=== PATIENT | male | born 1975 | race Caucasian/White ===

== ENCOUNTER 2016-05-06 23:44 | Inpatient (IN) | payer MEDICARE, BC ==
[2016-05-07 04:22] LABS: Anisocytosis Moderate; CH 33.4; CHCM 32.1; HCT 24.7 % (39.0-53.0); HDW 3.49; HGB 7.7 gm/dL (13.0-17.5); Hypochromasia Slight; MCH 33.1 pg (25.0-35.0); MCHC 31.3 g/dL (31.0-37.0); MCV 105.6 fL (80.0-100.0); Macrocytosis Marked; Mean Platelet Volume 6.6; Poikilocytosis Slight; RBC 2.34 m/uL (4.30-5.90); RDW 21.5 % (11.5-15.5); WBC 4.7 k/uL (3.8-10.6); WBC (Perox) 4.99
[2016-05-07 06:42] LABS: Add Differential Manual Differential
[2016-05-07 06:49] LABS: Myelocytes % 0.5 %; Nucleated Red Blood Cells 0 /100 WBC (0-0); Total Cells Counted 200
[2016-05-07 06:50] LABS: Crenated RBC Present
[2016-05-07] MEDS ORDERED: NALOXONE 0.4 MG/ML 1 ML VIAL IV PRN (11:34)
[2016-05-07] MEDS ORDERED: LORazepam 0.5 MG TAB PO PRN (11:34)
[2016-05-07] MEDS ORDERED: MEROPENEM 1 GM VIAL IVPB SCH (11:45)
--- NOTE | 2016-05-07 12:00 | XR ---
EXAMINATION TYPE: XR chest 1V DATE OF EXAM: 05/07/2016 11:47 AM COMPARISON: NONE INDICATION: Cirrhosis TECHNIQUE: Single frontal view of the chest is obtained. FINDINGS: The heart size is normal. The pulmonary vasculature is normal. The lungs are clear. IMPRESSION: 1. No acute pulmonary process.
[2016-05-07] MEDS: SODIUM CHLORIDE 0.9% 1,000 ML IV SCH (12:43)
[2016-05-07 12:49] LABS: Anisocytosis Moderate; Basophils % (A) 0 %; CH 33.4; CHCM 32.3; Eosinophils % (A) 0 %; HCT 24.3 % (39.0-53.0); HDW 3.47; HGB 7.8 gm/dL (13.0-17.5); Hypochromasia Slight; Luc # (Auto) 0.04; Luc % (Auto) 1; Lymphocytes # (A) 0.3 k/uL (1.0-4.8); Lymphocytes % (A) 6 %; MCH 33.6 pg (25.0-35.0); MCHC 32.1 g/dL (31.0-37.0); MCV 104.7 fL (80.0-100.0); Macrocytosis Marked; Mean Platelet Volume 6.6; Monocytes # (A) 0.1 k/uL (0-1.0); Monocytes % (A) 2 %; Neutrophils # (A) 4.2 k/uL (1.3-7.7); Neutrophils % (A) 91 %; Poikilocytosis Slight; RBC 2.32 m/uL (4.30-5.90); WBC 4.6 k/uL (3.8-10.6); WBC (Perox) 4.82
[2016-05-07 12:55] LABS: INR 1.6 (<1.1); Prothrombin Time 15.3 sec (9.0-12.0)
[2016-05-07 12:58] LABS: Magnesium 1.6 mg/dL (1.6-2.3); Phosphorous 6.2 mg/dL (2.5-4.5); Potassium 4.7 mmol/L (3.5-5.1); Total Protein 4.7 g/dL (6.3-8.2)
[2016-05-07 13:08] LABS: Manual Review Performed
[2016-05-07 13:15] LABS: Crenated RBC Present
[2016-05-07] MEDS: RIFAXIMIN 550 MG TABLET PO SCH (14:17)
[2016-05-07] MEDS: PANTOPRAZOLE 40 MG/10 ML VIAL IV SCH (14:17)
[2016-05-07] MEDS: MESALAMINE 400 MG CAPSULE.DR PO SCH (15:50)
[2016-05-07] MEDS: FUROSEMIDE 80 MG TAB PO SCH (15:50)
[2016-05-07] MEDS: MIDODRINE 5 MG TAB PO SCH (15:50)
[2016-05-07] MEDS: MEROPENEM 2 GM in SODIUM CHLORIDE 0.9% 100 ML IVPB SCH (15:51)
[2016-05-07] MEDS: SODIUM BICARBONATE TAB 650 MG TAB PO SCH (15:51)
--- NOTE | 2016-05-07 17:25 | CONS ---
DATE OF CONSULTATION: 05/07/2016 REASON FOR CONSULTATION: Ascites. 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 In fact, he was just discharged from [facility] on the day before Eleanor at which time he was admitted to the hospital with abdominal pain, ascites and he underwent large volume paracentesis on 04/28 and approximately 2 liters of fluid was removed. During his last hospitalization the patient was diagnosed to have some scrotal abscess related to his Crohn's disease for which he underwent incision and drainage and subsequently during the hospitalization because of persistent leukocytosis and some headaches, he had CT of the head done, which showed multiple small abscesses in the brain and was evaluated by ID. He was started on IV antibiotics with Merrem. In fact he was discharged home on home antibiotics, which the mother has been giving him. He was not feeling well. He is complaining of some abdominal discomfort and he wants to have another large volume paracentesis; hence, he went to the emergency room at [facility] and subsequently transferred here for further management. The patient denies any abdominal pain. He reports no nausea or vomiting. He does complain of some shortness of breath and he believes this is because of ongoing ascites. He has long-standing history of Crohn's disease with severe rectal strictures and attempted colonoscopy in the last 3 months at [facility] was not successful. Patient was scheduled to have a barium enema, but because of multiple hospitalizations this was not done. He states that yesterday he had 2 episodes of bright red blood per rectum and usually he has about 5 to 6 bowel movements daily. His past medical history is significant for: 1. Cirrhosis of the liver. 2. Primary sclerosing cholangitis. 3. Crohn's colitis with rectal and anal strictures. 4. Chronic renal failure. 5. Pancytopenia. PAST SURGICAL HISTORY: 1. Recurrent paracentesis. 2. I&D of scrotal abscess. Medications at home include: 1. Actigall. 2. Sodium bicarb. 3. Xifaxan. 4. Potassium chloride. 5. Melatonin. 6. Lialda. 7. Merrem. 8. Magnesium oxide. 9. Lasix. 10. Folic acid. 11. Feosol. 12. Vitamin C. ALLERGIES: None. SOCIAL HISTORY: No smoking. No alcohol use. FAMILY HISTORY: Unremarkable. REVIEW OF SYSTEMS: CARDIOPULMONARY: He denies any chest pain or shortness of breath. GENITOURINARY: No dysuria or hematuria. MUSCULOSKELETAL: Unremarkable. SKIN: Unremarkable. ENDOCRINE: Unremarkable. PSYCHIATRIC: Unremarkable. NEUROLOGY: Unremarkable. ENT/VISION: Unremarkable. CONSTITUTIONAL: Extremely weak and tired. On physical examination, he appears comfortable in no apparent distress. Vital signs are stable. Blood pressure is 112/65, pulse is 76, temperature 96.9. HEENT EXAMINATION: Unremarkable. Conjunctivae pink. Sclerae anicteric. Oral cavity, no lesions. NECK: No JVD or lymph node enlargement. Chest was clear to auscultation. HEART: Regular rate and rhythm. ABDOMEN: Soft. It was slightly distended. There was some free fluid noted in the abdomen. EXTREMITIES: 1+ pedal edema. SKIN: No rashes. NEURO: He is alert and oriented x3. No focal deficits. Labs from today, WBC 4.6, hemoglobin 7.8, platelets are 81,000. The rest of the labs are still pending at the time of this dictation. IMPRESSION: 1. Recurrent ascites, last paracentesis was done a week ago at [facility]. 2. Cirrhosis of the liver secondary to primary sclerosing cholangitis. The patient is presently on liver transplant list at [facility]. 3. Long-standing history of Crohn's colitis with anal and rectal strictures; now has some rectal bleeding probably related to active colitis. 4. Pancytopenia related to hypersplenism from portal hypertension. 5. Recent scrotal abscess for which he was admitted to [facility] status post incision and drainage a week ago and CT of the head showed multiple small brain abscesses for which he is on Merrem on an outpatient basis. RECOMMENDATIONS: 1. Continue all home medications. 2. I will schedule him for a large volume paracentesis on Sunday and hopefully we can discharge the patient home on Sunday so that he can follow up with his outpatient visit at [facility] on Sunday. In the meantime will await the rest of the labs and will follow the patient closely during his hospital stay.
--- NOTE | 2016-05-07 18:41 | HP ---
DATE OF ADMISSION: CHIEF COMPLAINT: Abdominal distention. HISTORY OF PRESENT ILLNESS: This 40-year-old gentleman with a past medical history of multiple medical problems and long-standing Crohn's disease, history of primary sclerosing cholangitis and liver disease secondary to Crohn's disease, history of kidney injury being followed by Lalito Palencia in [facility] also was seen by [facility]. The patient had hepatic cirrhosis. The patient is on liver transplant list since 02/19. The patient has iron deficient anemia and pancytopenia. The patient also has ascites which started in February at [facility] about 1.5 liters of fluid was aspirated. Patient also has esophageal varices and portal gastropathy and rectal stricture also. 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 The patient was treated with vancomycin, ertapenem and clindamycin and subsequently patient had a fall and subsequently patient found to have multiple brain abscesses. Patient had PICC line placed and was started on meropenem per recommendations from [facility]. The patient also had acute kidney injury during the hospitalization. Neurosurgery was consulted and meropenem, a total of 8 weeks course of meropenem was suggested. A LUCHO was negative for any vegetation at this time. The patient was discharged on April 28. The patient went home and the pat went to [facility] with complaints of shortness of breath and abdominal distention. Patient was transferred to [facility] as direct admission at this time. There is no history of fever, rigors. No history of headache, loss of consciousness, seizures. PAST MEDICAL HISTORY: History of Crohn's disease, extensive Crohn's disease associated liver disease and history of pancytopenia, rectal abscess, history of recent brain abscess and scrotal abscess. Medications prior to admission include: 1. Zinc sulfate 220 mcg p.o. daily. 2. Vitamin E 10,000 daily. 3. Actigall 300 mg b.i.d. 4. Sodium bicarbonate 650 mg p.o. t.i.d. 5. Xifaxan 550 mg p.o. b.i.d. 6. Klor-Con 40 mg p.o. daily. 7. Midodrine 10 mg p.o. b.i.d. 8. Lialda 2.4 grams p.o. daily. 9. Merrem 2 grams IV q.8. 10. Magnesium oxide 50 mg. 11. Lasix 80 mg p.o. daily. 12. Folic acid 1 mg a day. 13. Iron sulfate 320 mg b.i.d. 14. Vitamin C 250 mg daily. ALLERGIES: None. FAMILY HISTORY: History of hypertension, history of hyperlipidemia, history of renal disease and Crohn's in the family. SOCIAL HISTORY: No history of smoking, no history of alcohol intake. REVIEW OF SYSTEMS: ENT: No diminished hearing or vision. CARDIOVASCULAR: No angina. RESPIRATORY: No cough. GI: As mentioned earlier. : As mentioned earlier. NERVOUS SYSTEM: As mentioned earlier. ALLERGY/IMMUNOLOGY: No asthma or hayfever. MUSCULOSKELETAL: As mentioned earlier. HEMATOLOGY: No history of anemia. ENDOCRINE: No history of diabetes or hypothyroidism. CONSTITUTIONAL: As mentioned earlier. DERMATOLOGY: Negative. RHEUMATOLOGY: Negative. PSYCHIATRY: As mentioned earlier. PHYSICAL EXAMINATION: Alert and oriented x3. Pulse 83, blood pressure 106/59, respiration 18, temperature 96.9. Pulse ox 100% on room air. HEENT: Conjunctivae deeply icteric. Oral mucosa icteric. NECK: No jugular venous distention. No carotid bruit. No lymph node enlargement. CARDIOVASCULAR: S1 and S2, muffled. No S3, no S4. RESPIRATORY: Breath sounds diminished at the bases. A few scattered rhonchi, no crackles. ABDOMEN: Soft, obese. Ascites present. No hepatosplenomegaly. No guarding, no rigidity. No tenderness. Bowel sounds are diminished. Flanks are dull on percussion. LEGS: Bilateral leg edema and pulses felt normally. NERVOUS SYSTEM: Higher function as mentioned earlier. Moves all four limbs. No focal motor deficits. LYMPHATIC: No lymphadenopathy in the neck, axillae or groin. SKIN: No ulcer, rash or bleeding. LABS: WBC 4.7, hemoglobin 11.8, MCV 104.7. Other labs are sodium 130, potassium 4.7 and creatinine is 1.76, phosphorus 6.2. Alk phos 133, total protein is 4.7. Albumin is 1.7. Lipase 351. ASSESSMENT: 1. Abdominal distention and ascites causing shortness of breath. 2. History of recent brain abscess on IV meropenem through PICC line as an outpatient. 3. Cirrhosis of liver secondary to primary sclerosing cholangitis secondary to Crohn's disease. 4. History of Crohn's disease. 5. Anemia, macrocytic, possibly nutritional. 6. Thrombocytopenia secondary liver disease. 7. Coagulopathy secondary to chronic liver disease with INR 1.6. 8. Decreased CO2. 9. Increased creatinine with possible acute on chronic kidney disease, multifactorial. 10. Hypocalcemia. 11. Hyperbilirubinemia. 12. Hypoalbuminemia with mild to moderate protein calorie malnutrition. 13. Increased lipase. 14. History of iron deficiency anemia and pancytopenia. 15. History of ascites. 16. Acute on chronic kidney disease. 17. History of esophageal varices and portal gastropathy. 18. History of rectal stricture. 19. History of metabolic acidosis. 20. 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 21. FULL CODE. RECOMMENDATIONS AND DISCUSSION: In this 40-year-old gentleman who presented with multiple complex medical issues, we will monitor the patient closely. Continue the current medications and symptomatic treatment. Resume the home medications. Repeat labs. Continue the IV antibiotics. Gastroenterology consultation has been sought. We will recommend abdominal paracentesis and continue with monitoring. Otherwise, prognosis guarded because of multiple complex medical issues. Further recommendations to follow. Copy of dictation forwarded to Dr. Lalito Palencia who is the primary physician. Also I have also recommended patient to follow-up with [facility] closely on discharge. Will check serum ammonia. Mental status appears to be stable at this time. Continue to monitor. Further recommendations to follow. MTDD
[2016-05-07 18:42] LABS: Appearance,Urine Clear (Clear); Bilirubin,Urine 2+ (Negative); Glucose,Urine (UA) Negative (Negative); Ketones,Urine 1+ (Negative); Leukocyte Esterase,Urine Negative (Negative); Nitrite,Urine Negative (Negative); PH, Urine 5.5 (5.0-8.0); Protein,Urine Trace (Negative); Specific Gravity,Urine 1.016 (1.001-1.035); UA Billing (MACRO vs. MICRO) CHEM
[2016-05-07] MEDS ORDERED: LORazepam 2 MG/ML SYRINGE ONE (19:45)
[2016-05-07] MEDS ORDERED: LORazepam 2 MG/ML SYRINGE IV STA (19:47)
[2016-05-07] MEDS ORDERED: levETIRAcetam IV 1,000 MG in SALINE 1 100ML.BAG IVPB STA (19:48)
[2016-05-07] MEDS ORDERED: LORazepam 2 MG/ML SYRINGE IV PRN ×2 (19:57→20:04)
[2016-05-07 20:00] LABS: Glucose,Whole Blood 135 mg/dL (75-99)
[2016-05-07] MEDS ORDERED: MELATONIN 3 MG TABLET PO PRN (21:00)
--- NOTE | 2016-05-07 21:06 | CT ---
EXAMINATION TYPE: CT brain wo con DATE OF EXAM: 05/07/2016 8:54 PM COMPARISON: NONE HISTORY: Seizures. CT DLP: 1120.00 mGycm Automated exposure control for dose reduction was used. FINDINGS: There is some gyriform 3 x 1 cm area of hypodensity in the left parietal lobe. There is no mass effec t. There is no midline shift. There is a 1 cm area of hypodensity in the white matter right frontal l obe. There is no evidence of intracranial hemorrhage. The calvarium is intact. The right frontal lobe lesion and left parietal lesion appear to have tiny central area of increased density. These could b e small tumors with surrounding edema. There is a third small potential focus in the right parietal l obe convexity that measures 6 mm. IMPRESSION: Multiple lesions in the brain are seen with some edema. The largest is in the left parietal lobe. Thi s could be metastatic disease. Contrast CT scan or MR scan is recommended for further evaluation.
[2016-05-07 23:48] LABS: Anisocytosis Moderate; Basophils % (A) 0 %; CH 33.5; CHCM 32.4; Eosinophils % (A) 0 %; HCT 24.7 % (39.0-53.0); HDW 3.27; HGB 7.8 gm/dL (13.0-17.5); Luc # (Auto) 0.07; Luc % (Auto) 1; Lymphocytes # (A) 0.4 k/uL (1.0-4.8); Lymphocytes % (A) 4 %; MCH 33.2 pg (25.0-35.0); MCHC 31.7 g/dL (31.0-37.0); MCV 104.7 fL (80.0-100.0); Macrocytosis Marked; Mean Platelet Volume 6.7; Monocytes # (A) 0.4 k/uL (0-1.0); Monocytes % (A) 5 %; Neutrophils # (A) 7.5 k/uL (1.3-7.7); Neutrophils % (A) 90 %; RBC 2.35 m/uL (4.30-5.90); RDW 20.6 % (11.5-15.5); WBC 8.3 k/uL (3.8-10.6); WBC (Perox) 8.07
[2016-05-08] MEDS: MEROPENEM 2 GM in SODIUM CHLORIDE 0.9% 100 ML IVPB SCH ×4 (00:04→23:24)
[2016-05-08] MEDS: FERROUS SULFATE 325 MG TAB PO SCH ×3 (00:04→21:13)
[2016-05-08] MEDS: MESALAMINE 400 MG CAPSULE.DR PO SCH ×4 (00:05→21:13)
[2016-05-08] MEDS: RIFAXIMIN 550 MG TABLET PO SCH ×3 (00:05→19:45)
[2016-05-08] MEDS: MIDODRINE 5 MG TAB PO SCH ×4 (00:06→21:13)
[2016-05-08] MEDS: SODIUM BICARBONATE TAB 650 MG TAB PO SCH ×4 (00:06→21:14)
[2016-05-08] MEDS: SODIUM CHLORIDE 0.9% 1,000 ML IV SCH ×2 (06:02→11:47)
[2016-05-08 07:44] LABS: Calcium 7.8 mg/dL (8.4-10.2); Total Bilirubin 6.9 mg/dL (0.2-1.3); Total Protein 4.1 g/dL (6.3-8.2)
[2016-05-08 07:51] LABS: Anisocytosis Moderate; Basophils % (A) 0 %; CH 33.5; CHCM 32.5; Eosinophils % (A) 0 %; HCT 23.1 % (39.0-53.0); HDW 3.29; HGB 7.4 gm/dL (13.0-17.5); Luc # (Auto) 0.05; Luc % (Auto) 1; Lymphocytes # (A) 0.4 k/uL (1.0-4.8); Lymphocytes % (A) 6 %; MCH 33.3 pg (25.0-35.0); MCHC 31.9 g/dL (31.0-37.0); MCV 104.4 fL (80.0-100.0); Macrocytosis Marked; Mean Platelet Volume 6.5; Monocytes # (A) 0.3 k/uL (0-1.0); Monocytes % (A) 4 %; Neutrophils # (A) 5.9 k/uL (1.3-7.7); Neutrophils % (A) 89 %; RBC 2.22 m/uL (4.30-5.90); RDW 20.7 % (11.5-15.5); WBC 6.7 k/uL (3.8-10.6); WBC (Perox) 6.84
[2016-05-08 07:56] LABS: Potassium 4.8 mmol/L (3.5-5.1)
[2016-05-08] MEDS: POTASSIUM CHLORIDE ER 20 MEQ TAB.ER PO SCH (08:32)
[2016-05-08] MEDS: ASCORBIC ACID 500 MG TAB PO SCH (08:32)
[2016-05-08] MEDS: ZINC SULFATE 220 MG CAP PO SCH (08:32)
[2016-05-08] MEDS: MAGNESIUM OXIDE 250 MG TAB PO SCH (08:32)
[2016-05-08] MEDS: FOLIC ACID 1 MG TAB PO SCH (08:33)
[2016-05-08] MEDS: PANTOPRAZOLE 40 MG/10 ML VIAL IV SCH (08:33)
[2016-05-08] MEDS: FUROSEMIDE 80 MG TAB PO SCH ×2 (08:33→17:21)
[2016-05-08] MEDS: levETIRAcetam IV 750 MG in SODIUM CHLORIDE 0.9% 100 ML IVPB SCH ×2 (08:41→21:13)
[2016-05-08 09:30] LABS: Crenated RBC Present; Manual Review Performed
[2016-05-08 09:31] LABS: Spherocytes Present
[2016-05-08] MEDS: IOHEXOL 350 MG/ML 25 ML BOTTLE (ORAL USE) PO PRN ×2 (14:05→15:01)
--- NOTE | 2016-05-08 16:45 | P.CONS ---
History of Present Illness - Reason for Consult Consult date: 05/08/16 brain lesions Requesting physician: Rudi Barba - Chief Complaint SOB, abd distension - History of Present Illness Mr. Mims is a very pleasant 40 year old male with an extensive health history including Crohn's disease, liver disease with gastropathy and esophageal varices, recent diagnosis of gangrenous scrotal abscess and suspected brain abscesses. Pt was recently hospitalized at [facility] and is currently being treated with antibiotics for aforementioned conditions. Pt was seen in [place] for increased abd distension and discomfort, he was sent here for further work up and treatment, per nursing pt has seizure prior to transferring to [facility]. Pt denies personal diagnosis of malignancy, he is due to follow up with a Doctor at [facility], not sure if it is regarding his liver or his brain. He has no specific physical c/o at this time, no recent seizure. Review of Systems All systems: negative Constitutional: Reports as per HPI Past Medical History Past Medical History: Liver Disease Additional Past Medical History / Comment(s): Crohn's Ileo colitis with decompensated hepatic cirrhosis, jaundice, on liver transplant list since 02/19 , iron deficient anemia and pancytopenia, ascites began in February, pedal edema , Acute on chronic kidney disease, esopohageal varicies, portal gastropathy, rectal stricture, primary sclerosing cholangitis, brain abscess, metabolic acidosis, scrotal abscess History of Any Multi-Drug Resistant Organisms: None Reported Additional Past Surgical History / Comment(s): I&D of scrotum for abcess; paracentesis at [facility] in Apr 2016 Past Anesthesia/Blood Transfusion Reactions: No Reported Reaction Past Psychological History: No Psychological Hx Reported Smoking Status: Never smoker - Past Family History Father Family Medical History: Hyperlipidemia, Hypertension, Renal Disease Additional Family Medical History / Comment(s): Chrohn's disease Mother Family Medical History: Diabetes Mellitus, Hyperlipidemia, Hypertension, Thyroid Disorder Medications and Allergies Home Medications Medication Instructions Recorded Confirmed Type Ferrous Sulfate [Feosol] 325 mg PO BID 04/14/16 05/07/16 History Folic Acid 1 mg PO DAILY 04/14/16 05/07/16 History Mesalamine [Lialda] 2.4 gm PO DAILY 04/14/16 05/07/16 History Rifaximin [Xifaxan] 550 mg PO BID 04/14/16 05/07/16 History Ursodiol [Actigall] 300 mg PO BID 04/14/16 05/07/16 History Ascorbic Acid [Vitamin C] 250 mg PO DAILY 05/07/16 05/07/16 History Furosemide [Furosemide] 80 mg PO BID 05/07/16 05/07/16 History Magnesium Oxide [Mag-Ox] 250 mg PO DAILY 05/07/16 05/07/16 History Meropenem [Merrem] 2 gm IVPB Q8H 05/07/16 05/07/16 History Midodrine HCl [Midodrine HCl] 10 mg PO TID 05/07/16 05/07/16 History Potassium Chloride [Klor-Con 10] 40 meq PO DAILY 05/07/16 05/07/16 History Sodium Bicarbonate Tab 650 mg PO TID 05/07/16 05/07/16 History Vitamin A 10,000 unit PO DAILY 05/07/16 05/07/16 History Zinc Sulfate 220 mg PO DAILY 05/07/16 05/07/16 History Allergies Allergy/AdvReac Type Severity Reaction Status Date / Time No Known Allergies Allergy Verified 05/07/16 09:20 Physical Exam Vitals: Vital Signs Temp Pulse Resp BP Pulse Ox 05/08/16 12:00 63 14 05/08/16 11:20 96.8 F L 63 14 111/72 100 05/08/16 08:00 98.7 F 84 16 106/53 100 05/08/16 04:00 98.1 F 76 16 108/55 98 05/08/16 00:00 98.5 F 87 16 116/64 100 05/07/16 21:30 98.2 F 88 18 100/59 100 05/07/16 19:52 97.0 F L 100 156/69 100 05/07/16 19:42 125/71 Intake and Output 05/08/16 05/08/16 05/08/16 06:59 14:59 22:59 Intake Total 1000 Balance 1000 Intake: IV 400 Sodium Chloride 0.9% 1, 400 000 ml @ 50 mls/hr IV . Q20H [facility] Rx#:[id number] Intake, IV Titration 200 Amount Meropenem 2 gm In Sodium 100 Chloride 0.9% 100 ml @ 200 mls/hr IVPB Q8HR [facility] Rx#:[id number] levETIRAcetam IV 750 mg 100 In Sodium Chloride 0.9% 100 ml @ 400 mls/hr IVPB Q12HR [facility] Rx#:[id number] Oral 400 Other: Voiding Method Urinal Urinal # Voids 2 1 # Bowel Movements 1 1 Weight 98.43 kg - Constitutional anasarca General appearance: cooperative, no acute distress - EENT Eyes: anicteric sclerae ENT: pharyngeal erythema - Neck Neck: no lymphadenopathy - Respiratory Respiratory: bilateral: diminished - Cardiovascular Heart sounds: normal: S1, S2 leg Peripheral Edema: bilateral: 3+ - Gastrointestinal General gastrointestinal: distended, normal bowel sounds, soft - Integumentary Integumentary: jaundiced - Neurologic generalized weakness - Musculoskeletal Musculoskeletal: generalized weakness - Psychiatric flat affect Psychiatric: A&O x's 3, intact judgment & insight Results CBC & Chem 7: 05/08/16 06:34 05/08/16 06:34 Labs: Abnormal Lab Results - Last 24 Hours (Table) 05/07/16 05/07/16 05/07/16 Range/Units 18:29 19:51 23:00 RBC 2.35 L (4.30-5.90) m/uL Hgb 7.8 L (13.0-17.5) gm/dL Hct 24.7 L (39.0-53.0) % MCV 104.7 H (80.0-100.0) fL RDW 20.6 H (11.5-15.5) % Plt Count 88 L (150-450) k/uL Lymphocytes # 0.4 L (1.0-4.8) k/uL Sodium (137-145) mmol/L Chloride (98-107) mmol/L Carbon Dioxide (22-30) mmol/L BUN (9-20) mg/dL Creatinine (0.66-1.25) mg/dL POC Glucose (mg/dL) 135 H (75-99) mg/dL Calcium (8.4-10.2) mg/dL Total Bilirubin (0.2-1.3) mg/dL Total Protein (6.3-8.2) g/dL Albumin (3.5-5.0) g/dL Urine Protein Trace H (Negative) Urine Ketones 1+ H (Negative) Urine Bilirubin 2+ H (Negative) 05/08/16 05/08/16 Range/Units 06:34 06:34 RBC 2.22 L (4.30-5.90) m/uL Hgb 7.4 L (13.0-17.5) gm/dL Hct 23.1 L (39.0-53.0) % MCV 104.4 H (80.0-100.0) fL RDW 20.7 H (11.5-15.5) % Plt Count 82 L (150-450) k/uL Lymphocytes # 0.4 L (1.0-4.8) k/uL Sodium 134 L (137-145) mmol/L Chloride 109 H (98-107) mmol/L Carbon Dioxide 15 L (22-30) mmol/L BUN 48 H (9-20) mg/dL Creatinine 1.70 H (0.66-1.25) mg/dL POC Glucose (mg/dL) (75-99) mg/dL Calcium 7.8 L (8.4-10.2) mg/dL Total Bilirubin 6.9 H (0.2-1.3) mg/dL Total Protein 4.1 L (6.3-8.2) g/dL Albumin 1.5 L (3.5-5.0) g/dL Urine Protein (Negative) Urine Ketones (Negative) Urine Bilirubin (Negative) Chest x-ray: report reviewed CT Scan - head: report reviewed Assessment and Plan (1) Brain lesion Narrative/Plan: Pt stated that he is aware of the brain lesions, he was seen at [facility] and pt was being treated with antibiotics with plans to follow up soon with another scan. We have contacted [facility] for reports, records dept closed today, will f/u in AM. Pt is currently on abx and antiseizure medications. Have ordered CT CAP to evaluate for a possible solid tumor/underlying malignancy. Status: Acute (2) Bicytopenia Narrative/Plan: Anemia and thrombocytopenia, likely multi-factorial including chronic inflammation, acute infection, medication effects and chronic liver disease causing splenic sequestration of platelets. Additional labs ordered to evaluate for specific deficiency, no transfusion ordered today, CBC in AM. Status: Acute
--- NOTE | 2016-05-08 17:27 | CT ---
EXAMINATION TYPE: CT ChestAbdPelvis wo con DATE OF EXAM: 05/08/2016 4:05 PM COMPARISON: Correlation MRI 07/07/2013 HISTORY: Patient poor historian. 40-year-old male with brain lesions, rule out metastatic disease. TECHNIQUE: Contiguous axial scanning of the chest, abdomen, and pelvis without IV contrast. Coronal a nd sagittal reconstructions performed. CT DLP: 1479 mGycm Automated exposure control for dose reduction was used. FINDINGS: CHEST: A left PICC tip is at the cavoatrial junction. Mild bilateral gynecomastia. Heart is upper limits of normal in size without pericardial effusion. Lack of IV contrast limits assessment of the mediastinal and hilar structures as well as the vascular structures. Large masslike area of opacity measuring 8.8 x 5.2 cm in the medial right lung base appears to have b een present to some extent on the MRI of 07/07/2013 and may represent masses paraesophageal varices. Ot her etiology including mass difficult to exclude on this noncontrast study. No definite thoracic lymphadenopathy otherwise seen. There are trace pleural effusions. Strandy areas of atelectasis in the lower lungs. ABDOMEN: Lack of IV contrast limits assessment of the solid abdominal viscera, lymph nodes, and vascular struc tures. There is a very large amount of abdominopelvic ascites fluid. The liver is shrunken with a nodular, cirrhotic morphology. Lack of IV contrast limits assessment for hepatoma. Gallbladder is nondistended. Marked splenomegaly at 18.6 cm redemonstrated. Distention of the umbilical vein compatible with recan alization. Prominent retrosplenic varices and additional suspected varices in the region of the splenic hilum. T his is when correlated with previous MRI of 07/07/2013. Oral contrast has only progressed to the mid small bowel level. Mild colonic wall thickening of the c ecum and ascending colon is nonspecific. No significant stool burden. Pelvis: Bladder is urine distended. Pelvic free fluid. Diffuse anasarca-type change. Bones: No osseous destructive process. IMPRESSION: 1. CIRRHOSIS. NONCONTRAST STUDY LIMITS EVALUATION FOR HEPATOMA. 2. EVIDENCE OF PORTAL VENOUS HYPERTENSION GIVEN MARKED SPLENOMEGALY, RECANALIZED UMBILICAL VEIN, AND SEVERE ABDOMINOPELVIC ASCITES. 3. MASSES IN THE MEDIAL RIGHT LUNG BASE MEASURING UP TO 8.8 CM AND INFRASPLENIC/SPLENIC HILAR REGIONS APPEAR TO CORRESPOND TO MASSIVE PARAESOPHAGEAL VARICES AND OTHER UPPER ABDOMINAL COLLATERALS WHEN CO RRELATED TO MRI OF 07/07/2013. THE LACK OF IV CONTRAST LIMITS THE EVALUATION. 4. FLUID OVERLOAD STATE WITH TRACE EFFUSIONS AND DIFFUSE ANASARCA TYPE CHANGE. 5. MILD CIRCUMFERENTIAL WALL THICKENING OF THE CECUM AND ASCENDING COLON COULD REPRESENT COLITIS OR E MARISOL FROM HYPOALBUMINEMIA.
--- NOTE | 2016-05-08 18:40 | P.CNNES ---
History of Present Illness Consult date: 05/08/16 Requesting physician: Rashad Shaw Reason for Consult: Seizure History of Present Illness: Patient is a pleasant 40-year-old male who is being evaluated by the neurology service on 05/08/2016 per the request of Dr. Shaw for seizure activity. Patient has extensive medical history including Crohn's disease, liver disease with gastropathy and esophageal varices, recent gangrenous scrotal abscess, and suspected brain abscesses. Computed tomography scan of the brain shows multiple lesions in the brain with some edema. This is felt to be metastatic disease or brain abscess. Patient was recently hospitalized at [facility] and was treated with antibiotics for brain abscess. Patient is on the liver transplant list and follows with physicians at [facility]. Patient had a witnessed seizure last night. Patient denies any history of seizure activity. Patient was started on Keppra and has not had any further seizures. At the time of my evaluation, patient is resting comfortably in bed and appears to be in no acute distress. Review of Systems REVIEW OF SYSTEMS: Otherwise unremarkable and noncontributory. Past Medical History Past Medical History: Liver Disease Additional Past Medical History / Comment(s): Crohn's Ileo colitis with decompensated hepatic cirrhosis, jaundice, on liver transplant list since 02/19 , iron deficient anemia and pancytopenia, ascites began in February, pedal edema , Acute on chronic kidney disease, esopohageal varicies, portal gastropathy, rectal stricture, primary sclerosing cholangitis, brain abscess, metabolic acidosis, scrotal abscess History of Any Multi-Drug Resistant Organisms: None Reported Additional Past Surgical History / Comment(s): I&D of scrotum for abcess; paracentesis at [facility] in Apr 2016 Past Anesthesia/Blood Transfusion Reactions: No Reported Reaction Past Psychological History: No Psychological Hx Reported Smoking Status: Never smoker - Past Family History Father Family Medical History: Hyperlipidemia, Hypertension, Renal Disease Additional Family Medical History / Comment(s): Chrohn's disease Mother Family Medical History: Diabetes Mellitus, Hyperlipidemia, Hypertension, Thyroid Disorder Medications and Allergies Home Medications Medication Instructions Recorded Confirmed Type Ferrous Sulfate [Feosol] 325 mg PO BID 04/14/16 05/07/16 History Folic Acid 1 mg PO DAILY 04/14/16 05/07/16 History Mesalamine [Lialda] 2.4 gm PO DAILY 04/14/16 05/07/16 History Rifaximin [Xifaxan] 550 mg PO BID 04/14/16 05/07/16 History Ursodiol [Actigall] 300 mg PO BID 04/14/16 05/07/16 History Ascorbic Acid [Vitamin C] 250 mg PO DAILY 05/07/16 05/07/16 History Furosemide [Furosemide] 80 mg PO BID 05/07/16 05/07/16 History Magnesium Oxide [Mag-Ox] 250 mg PO DAILY 05/07/16 05/07/16 History Meropenem [Merrem] 2 gm IVPB Q8H 05/07/16 05/07/16 History Midodrine HCl [Midodrine HCl] 10 mg PO TID 05/07/16 05/07/16 History Potassium Chloride [Klor-Con 10] 40 meq PO DAILY 05/07/16 05/07/16 History Sodium Bicarbonate Tab 650 mg PO TID 05/07/16 05/07/16 History Vitamin A 10,000 unit PO DAILY 05/07/16 05/07/16 History Zinc Sulfate 220 mg PO DAILY 05/07/16 05/07/16 History Allergies Allergy/AdvReac Type Severity Reaction Status Date / Time No Known Allergies Allergy Verified 05/07/16 09:20 Physical Examination - Vital Signs Vital Signs: Vital Signs Temp Pulse Resp BP Pulse Ox 05/08/16 16:00 96.8 F L 66 14 98/56 100 05/08/16 12:00 63 14 05/08/16 11:20 96.8 F L 63 14 111/72 100 05/08/16 08:00 98.7 F 84 16 106/53 100 05/08/16 04:00 98.1 F 76 16 108/55 98 05/08/16 00:00 98.5 F 87 16 116/64 100 05/07/16 21:30 98.2 F 88 18 100/59 100 05/07/16 19:52 97.0 F L 100 156/69 100 05/07/16 19:42 125/71 Intake and Output 05/08/16 05/08/16 05/08/16 06:59 14:59 22:59 Intake Total 1000 100 Output Total 300 Balance 1000 -200 Intake: IV 400 Sodium Chloride 0.9% 1, 400 000 ml @ 50 mls/hr IV . Q20H [facility] Rx#:[id number] Intake, IV Titration 200 100 Amount Meropenem 2 gm In Sodium 100 100 Chloride 0.9% 100 ml @ 200 mls/hr IVPB Q8HR [facility] Rx#:[id number] levETIRAcetam IV 750 mg 100 In Sodium Chloride 0.9% 100 ml @ 400 mls/hr IVPB Q12HR [facility] Rx#:[id number] Oral 400 Output: Urine 300 Other: Voiding Method Urinal Urinal Urinal # Voids 2 1 # Bowel Movements 1 1 1 Weight 98.43 kg PHYSICAL EXAM: GENERAL APPEARANCE: Patient is a well-developed, male who appears to be in no acute distress. HEENT: Normocephalic, atraumatic, no facial asymmetry is seen. Neck is supple with no masses felt. CARDIOVASCULAR: Regular rate and rhythm. ABDOMEN: Tender, distended. Ascites. EXTREMITIES: Moves all extremities. NEUROLOGICAL EXAM: Patient is awake, alert, and oriented 3. Speech and language are normal. Strength is full in all 4 extremities. No lateralizing weakness is seen. No focal deficit. No facial asymmetry is seen on cranial nerve testing. No tremors or seizure-like activity is noted. Results - Laboratory Findings CBC and BMP: 05/08/16 06:34 05/08/16 06:34 Abnormal Lab Findings: Abnormal Labs 05/07/16 05/07/16 05/07/16 03:55 12:30 12:30 RBC 2.34 L 2.32 L Hgb 7.7 L 7.8 L Hct 24.7 L 24.3 L MCV 105.6 H 104.7 H RDW 21.5 H 21.0 H Plt Count 90 L 81 L Lymphocytes # 0.3 L Lymphocytes # (Manual) 0.0 L PT 15.3 H Sodium Chloride Carbon Dioxide BUN Creatinine Glucose POC Glucose (mg/dL) Calcium Phosphorus Total Bilirubin Alkaline Phosphatase Ammonia Total Protein Albumin Lipase Urine Protein Urine Ketones Urine Bilirubin 05/07/16 05/07/16 05/07/16 12:30 15:24 18:29 RBC Hgb Hct MCV RDW Plt Count Lymphocytes # Lymphocytes # (Manual) PT Sodium Chloride 108 H Carbon Dioxide 17 L BUN 39 H Creatinine 1.76 H Glucose 116 H POC Glucose (mg/dL) Calcium 8.0 L Phosphorus 6.2 H Total Bilirubin 8.0 H Alkaline Phosphatase 133 H Ammonia 32 H Total Protein 4.7 L Albumin 1.7 L Lipase 351 H Urine Protein Trace H Urine Ketones 1+ H Urine Bilirubin 2+ H 05/07/16 05/07/16 05/08/16 19:51 23:00 06:34 RBC 2.35 L 2.22 L Hgb 7.8 L 7.4 L Hct 24.7 L 23.1 L MCV 104.7 H 104.4 H RDW 20.6 H 20.7 H Plt Count 88 L 82 L Lymphocytes # 0.4 L 0.4 L Lymphocytes # (Manual) PT Sodium Chloride Carbon Dioxide BUN Creatinine Glucose POC Glucose (mg/dL) 135 H Calcium Phosphorus Total Bilirubin Alkaline Phosphatase Ammonia Total Protein Albumin Lipase Urine Protein Urine Ketones Urine Bilirubin 05/08/16 06:34 RBC Hgb Hct MCV RDW Plt Count Lymphocytes # Lymphocytes # (Manual) PT Sodium 134 L Chloride 109 H Carbon Dioxide 15 L BUN 48 H Creatinine 1.70 H Glucose POC Glucose (mg/dL) Calcium 7.8 L Phosphorus Total Bilirubin 6.9 H Alkaline Phosphatase Ammonia Total Protein 4.1 L Albumin 1.5 L Lipase Urine Protein Urine Ketones Urine Bilirubin Assessment and Plan Plan: Impression: 1. New onset seizure/started on Keppra 2. History of brain abscess/recently treated with meropenem 3. History of cirrhosis of the liver/currently on the liver transplant list 4. History of Crohn's disease 5. Thrombocytopenia 6. Coagulopathy Plan: Patient did experience a witnessed seizure. Seizure most likely related to intracranial process noted on computed tomography scan. Patient was started on Keppra 750 mg twice a day. No further seizures noted. May switch to oral Keppra if patient able to swallow without difficulty. As you recall, patient CT scan of the brain showed multiple lesions consistent with either brain abscesses or metastatic lesions. I did consult infectious disease and oncology. Continue seizure precautions. Continue neurological checks. EEG was done and results are pending. I will continue to follow with you. Further recommendations to follow. Thank you for allowing me to participate in the care of your patient. Feel free to call me with any questions or concerns. I performed an examination of the patient and discussed the management with the ENVIRONMENTAL RESOURCE SPECIALIST. I have reviewed the ENVIRONMENTAL RESOURCE SPECIALIST notes and agree with the findings and plan of care.
[2016-05-08 18:53] LABS: Reticulocyte % 7.7 % (0.5-2.0)
--- NOTE | 2016-05-08 18:58 | PN ---
DATE OF CONSULTATION: 05/08/2016 Patient is a 40-year-old white male with history of cirrhosis, primary sclerosing cholangitis, Crohn disease who is presently on liver transplant list at [facility]. He was just hospitalized at [facility] with scrotal abscess and subsequently was also diagnosed with multiple abscesses in the brain. He was discharged to home the day before [place] on Merrem/ outpatient antibiotic therapy. The patient is supposed to be scheduled to see them tomorrow at [facility]. However, in the meantime, he became tired, weak, started developing abdominal pain, abdominal distention. The patient in the past had abdominal paracentesis done on and off every 2 to 3 weeks and approximately 1 or 2 liters of fluid was aspirated. The last one was done about a week ago. He did have a CT of the head done yesterday that showed multiple lesions in the brain, similar to the findings that were at [facility] 10 days ago. He denies any abdominal pain. He reports no nausea, vomiting today. He still looks somewhat lethargic. On physical examination, appears comfortable in no apparent distress. Vitals as are stable. Blood pressure 116/64, pulse 87, temperature 98.5. HEENT: Unremarkable. Conjunctivae pink. Sclerae anicteric. Oral cavity, no lesions. NECK: No JVD or lymph node enlargement. Chest was clear to auscultation. HEART: Regular rate and rhythm. ABDOMEN: Distended, nontender. EXTREMITIES: 2+ pedal edema. SKIN: No rashes. NEURO: He is alert and answering questions appropriately. Labs from today, WBC 6.7, hemoglobin 7.4, platelets are 82,000. Albumin 1.5. BUN is 48, creatinine 1.7. Ammonia level is 32. IMPRESSION: 1. Ascites secondary to cirrhosis of the liver/primary sclerosing cholangitis for which the patient is scheduled for large volume paracentesis tomorrow. 2. Recent scrotal abscess/multiple brain abscesses for which he was treated at [facility] a week ago and presently on Merrem which can continue as an outpatient also. He is scheduled to see neurologist tomorrow at [facility]. In the meantime. 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 3. History of primary sclerosing cholangitis/( ) on the liver transplant list at [facility] presently on hold because of ongoing infection. 4. Crohn disease with rectal and anal strictures. He had some rectal bleeding yesterday, but symptoms subsided today. RECOMMENDATIONS: 1. Will schedule him for large volume paracentesis tomorrow. 2. Continue with broad-spectrum antibiotics. 3. Advance diet as tolerated. 4. Will continue to follow the patient closely during hospital stay.
[2016-05-08 18:59] LABS: Anisocytosis Moderate; CH 33.4; CHCM 32.4; HCT 25.3 % (39.0-53.0); HDW 3.34; Hypochromasia Slight; MCH 33.1 pg (25.0-35.0); MCHC 31.7 g/dL (31.0-37.0); MCV 104.4 fL (80.0-100.0); Macrocytosis Marked; Mean Platelet Volume 6.6; RBC 2.42 m/uL (4.30-5.90); RDW 20.7 % (11.5-15.5); WBC 7.8 k/uL (3.8-10.6)
[2016-05-08 19:13] LABS: % Iron Saturation 21.4 % (20-50)
[2016-05-08 19:29] LABS: Add Differential Manual Differential
[2016-05-08 19:33] LABS: Manual Review Performed; Nucleated Red Blood Cells 0 /100 WBC (0-0); Total Cells Counted 100
[2016-05-09 07:51] LABS: ALT 54 U/L (21-72); AST 85 U/L (17-59); Alkaline Phosphatase 174 U/L (38-126); Anion Gap 12 mmol/L; Blood Urea Nitrogen 51 mg/dL (9-20); Calcium 7.6 mg/dL (8.4-10.2); Carbon Dioxide 16 mmol/L (22-30); Chloride 110 mmol/L (98-107); Glucose 70 mg/dL (74-99); Non-African American GFR(MDRD) 57 (>60 ml/min/1.73 sqM); Potassium 3.6 mmol/L (3.5-5.1); Sodium 138 mmol/L (137-145); Total Bilirubin 7.8 mg/dL (0.2-1.3); Total Protein 4.6 g/dL (6.3-8.2)
[2016-05-09 08:06] LABS: INR 1.7 (<1.1); Prothrombin Time 16.1 sec (9.0-12.0)
[2016-05-09] MEDS: levETIRAcetam IV 750 MG in SODIUM CHLORIDE 0.9% 100 ML IVPB SCH (09:13)
[2016-05-09] MEDS: MIDODRINE 5 MG TAB PO SCH ×3 (09:16→20:50)
[2016-05-09] MEDS: POTASSIUM CHLORIDE ER 20 MEQ TAB.ER PO SCH (09:16)
[2016-05-09] MEDS: MESALAMINE 400 MG CAPSULE.DR PO SCH ×3 (09:17→20:50)
[2016-05-09] MEDS: FOLIC ACID 1 MG TAB PO SCH (09:17)
[2016-05-09] MEDS: ASCORBIC ACID 500 MG TAB PO SCH (09:17)
[2016-05-09] MEDS: FUROSEMIDE 80 MG TAB PO SCH ×2 (09:17→17:45)
[2016-05-09] MEDS: MAGNESIUM OXIDE 250 MG TAB PO SCH (09:17)
[2016-05-09] MEDS: FERROUS SULFATE 325 MG TAB PO SCH ×2 (09:17→20:49)
[2016-05-09] MEDS: MEROPENEM 2 GM in SODIUM CHLORIDE 0.9% 100 ML IVPB SCH ×3 (09:56→23:34)
--- NOTE | 2016-05-09 09:58 | PN ---
DATE OF SERVICE: 05/08/2016 This 40 -year-old gentleman admitted with abdominal distention, ascites, also had seizure last night. Seen and evaluated the patient along with the nurse practitioner. Please refer to nurse practitioner notes and impression documented for further information. Patient had complicated recent history including brain abscess on IV meropenem through PICC line. Continue to monitor. Guarded prognosis. Further recommendations to follow. Will obtain a neurology consultation as well.
[2016-05-09 10:12] LABS: Anisocytosis Moderate; CH 33.3; HCT 26.2 % (39.0-53.0); HDW 3.13; HGB 8.3 gm/dL (13.0-17.5); Hypochromasia Slight; MCH 33.4 pg (25.0-35.0); MCHC 31.8 g/dL (31.0-37.0); MCV 105.2 fL (80.0-100.0); Macrocytosis Marked; Mean Platelet Volume 7.2; RBC 2.49 m/uL (4.30-5.90); RDW 20.5 % (11.5-15.5); WBC 6.1 k/uL (3.8-10.6); WBC (Perox) 5.75
--- NOTE | 2016-05-09 11:16 | P.PN ---
Subjective Principal diagnosis: Ascites 40-year-old male with a history cirrhosis primary sclerosing cholangitis Crohn' s disease presents with abdominal distention ascites. Scheduled for paracentesis today. Additionally he was recently hospitalized at [facility] with scrotal abscess and subsequently diagnosed with multiple abscesses in the brain. Last paracentesis a few weeks ago with 1-2 L were removed. Repeat CT of the head showed multiple lesions in the brain similar to [facility] findings. Afebrile. Objective - Vital Signs Vital signs: Vital Signs Temp 97 F L 05/09/16 08:00 Pulse 76 05/09/16 11:02 Resp 14 05/09/16 11:02 BP 102/66 05/09/16 11:02 Pulse Ox 100 05/09/16 11:02 Intake & Output 05/08/16 05/09/16 05/09/16 18:59 06:59 18:59 Intake Total 1100 Output Total 300 400 Balance 800 -400 Weight 98 kg Intake: IV 400 Sodium Chloride 0.9% 1, 400 000 ml @ 50 mls/hr IV . Q20H [facility] Rx#:[id number] Intake, IV Titration 300 Amount Meropenem 2 gm In Sodium 200 Chloride 0.9% 100 ml @ 200 mls/hr IVPB Q8HR [facility] Rx#:[id number] levETIRAcetam IV 750 mg 100 In Sodium Chloride 0.9% 100 ml @ 400 mls/hr IVPB Q12HR [facility] Rx#:[id number] Oral 400 Output: Urine 300 400 Other: Voiding Method Urinal Urinal # Voids 1 1 0 # Bowel Movements 1 1 0 - Exam General appearance: The patient is alert, oriented, in no acute distress. HET: Head is normocephalic and atraumatic. Pupils are equal and reactive. Oropharynx is clear without lesions. Neck: Supple without lymphadenopathy. Trachea midline. Heart: S1 S2. Regular rate and rhythm. Lungs: No crackles or wheezes are heard. Abdomen: Soft, distended with ascites with bowel sounds. No peritoneal signs. No palpable organomegaly or masses. Extremities: +2/+3 bilateral lower extremity edema. Neurological: No focal deficits. Strength and sensation are grossly intact. - Labs CBC & Chem 7: 05/09/16 06:39 05/09/16 06:39 Labs: Abnormal Lab Results - Last 24 Hours (Table) 05/08/16 05/08/16 05/08/16 Range/Units 18:42 18:42 18:42 RBC 2.42 L (4.30-5.90) m/uL Hgb 8.0 L (13.0-17.5) gm/dL Hct 25.3 L (39.0-53.0) % MCV 104.4 H (80.0-100.0) fL RDW 20.7 H (11.5-15.5) % Plt Count 97 L (150-450) k/uL Lymphocytes # (Manual) 0.8 L (1.0-4.8) k/uL Retic Count 7.7 H (0.5-2.0) % PT (9.0-12.0) sec Chloride (98-107) mmol/L Carbon Dioxide (22-30) mmol/L BUN (9-20) mg/dL Creatinine (0.66-1.25) mg/dL Glucose (74-99) mg/dL Calcium (8.4-10.2) mg/dL Iron 37 L (49-181) ug/dL TIBC 173 L (261-462) ug/dL Total Bilirubin (0.2-1.3) mg/dL AST (17-59) U/L Alkaline Phosphatase (38-126) U/L Total Protein (6.3-8.2) g/dL Albumin (3.5-5.0) g/dL 05/09/16 05/09/16 05/09/16 Range/Units 06:39 06:39 06:39 RBC 2.49 L (4.30-5.90) m/uL Hgb 8.3 L (13.0-17.5) gm/dL Hct 26.2 L (39.0-53.0) % MCV 105.2 H (80.0-100.0) fL RDW 20.5 H (11.5-15.5) % Plt Count 79 L (150-450) k/uL Lymphocytes # (Manual) (1.0-4.8) k/uL Retic Count (0.5-2.0) % PT 16.1 H (9.0-12.0) sec Chloride 110 H (98-107) mmol/L Carbon Dioxide 16 L (22-30) mmol/L BUN 51 H (9-20) mg/dL Creatinine 1.39 H (0.66-1.25) mg/dL Glucose 70 L (74-99) mg/dL Calcium 7.6 L (8.4-10.2) mg/dL Iron (49-181) ug/dL TIBC (261-462) ug/dL Total Bilirubin 7.8 H (0.2-1.3) mg/dL AST 85 H (17-59) U/L Alkaline Phosphatase 174 H (38-126) U/L Total Protein 4.6 L (6.3-8.2) g/dL Albumin 1.7 L (3.5-5.0) g/dL Assessment and Plan Plan: Impression: 1. Ascites secondary to cirrhosis of the liver primers causing cholangitis for which the patient prescription for large volume paracentesis today. 2. Recent scrotal abscess multiple brain abscesses for which she was treated [facility] recently. Patient is scheduled to see a neurologist at [facility] after discharge. CT had showed evidence of multiple lesions in the brain but no mass effect. 3. History of primary sclerosing cholangitis and cirrhosis of liver currently on transplant list at [facility] presently on hold because of ongoing infection. 4. Crohn disease with rectal anal strictures. Plan: 1. Paracentesis today with cytology. 2. Continue with broad-spectrum antibiotics. 3. Diet as tolerated. 4. Follow-up [facility] for brain lesions as indicated. We will continue to follow.
[2016-05-09 11:50] LABS: Add Differential Manual Differential
[2016-05-09 11:57] LABS: Nucleated Red Blood Cells 0 /100 WBC (0-0); Total Cells Counted 100
[2016-05-09] MEDS: RIFAXIMIN 550 MG TABLET PO SCH ×2 (12:48→20:50)
[2016-05-09] MEDS: SODIUM BICARBONATE TAB 650 MG TAB PO SCH ×3 (12:48→20:50)
[2016-05-09] MEDS: PANTOPRAZOLE 40 MG/10 ML VIAL IV SCH (12:48)
[2016-05-09] MEDS: ZINC SULFATE 220 MG CAP PO SCH (12:49)
--- NOTE | 2016-05-09 12:57 | US ---
EXAMINATION TYPE: US paracentesis abd w/image DATE OF EXAM: 05/09/2016 12:09 PM CLINICAL HISTORY: Ascites The procedure was discussed with the patient. The risks, complications, benefits, and alternatives we re discussed and any questions were answered. Informed consent was obtained. The patient was placed s upine on the ultrasound table and prepped and draped in the usual sterile fashion. All elements of maximal barrier technique were utilized. Under ultrasound guidance, access into the right lower quadrant was obtained, via the paracentesis catheter system and direct ultrasound guidanc e. Approximately 6.9 liters of straw-colored fluid was removed. The patient was stable throughout the pr ocedure and remained stable upon discharge from Department of Radiology. IMPRESSION: Successful therapeutic paracentesis under ultrasound guidance.
[2016-05-09 14:31] LABS: Anisocytosis Moderate; Basophils % (A) 0 %; CH 33.7; CHCM 32.7; Eosinophils % (A) 0 %; HCT 24.2 % (39.0-53.0); HDW 3.22; HGB 7.6 gm/dL (13.0-17.5); Luc # (Auto) 0.04; Luc % (Auto) 1; Lymphocytes # (A) 0.3 k/uL (1.0-4.8); Lymphocytes % (A) 6 %; MCH 32.9 pg (25.0-35.0); MCHC 31.6 g/dL (31.0-37.0); MCV 104.2 fL (80.0-100.0); Macrocytosis Marked; Mean Platelet Volume 6.3; Monocytes # (A) 0.4 k/uL (0-1.0); Monocytes % (A) 8 %; Neutrophils # (A) 4.3 k/uL (1.3-7.7); Neutrophils % (A) 84 %; RBC 2.32 m/uL (4.30-5.90); RDW 20.7 % (11.5-15.5); WBC 5.1 k/uL (3.8-10.6)
--- NOTE | 2016-05-09 14:40 | P.CONS ---
History of Present Illness - Reason for Consult Consult date: 05/09/16 Brain and scrotal abscesses - History of Present Illness This is a 40-year-old male. 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 He is on the liver transplant list at [facility]. He was recently hospitalized at [facility] at which time he was found to have a scrotal abscess related to his Crohn's disease for which she underwent an I&D. He had persistent leukocytosis and headaches for which he underwent a CAT scan of the brain that apparently showed multiple small abscesses and he was seen by infectious disease, Dr. Perez Villarreal. Patient had a PICC line placed and has been on home IV antibiotics with meropenem 2 g every 8 hours and to complete the course on May 26. Patient was discharged from [facility] on April 29. While in the hospital he also underwent a paracentesis on April 28 with 2 L of fluid removed. He apparently presented to [facility] complaining of abdominal discomfort and had 2 bright red stools. Patient normally has 5-6 bowel movements per day. He was transferred as a direct admission to [facility]. He has been seen in consultation by Dr. Pantoja with recommendations for paracentesis today and discharged home with follow-up at [facility] on Sunday. He has undergone a CAT scan of the brain which showed multiple lesions in the brain was some edema with the largest at the right parietal lobe could be metastatic disease. He underwent a CAT scan of the chest abdomen and pelvis that showed masses in the medial right lung up to 8.8, cirrhosis, portal venous hypertension , marked splenomegaly, recanalized from the local vein and severe abdominal pelvic ascites. Massive paraesophageal varices another upper abdominal collaterals. Fluid overload with trace effusions and diffuse anasarca. Mild circumferential wall thickening of the cecum and ascending colon could represent colitis or edema from hypoalbuminemia. Patient had a witnessed seizure on May 07 and has been seen in consultation by neurology. Patient was started on IV Keppra. He has been seen by oncology regarding brain lesion and bicytopenia. Review of Systems All systems: negative Constitutional: Reports anorexia, Reports fatigue, Reports poor appetite, Denies chills, Denies fever Eyes: denies blurred vision, denies pain Ears, nose, mouth and throat: Denies headache, Denies sore throat Cardiovascular: Denies chest pain, Denies shortness of breath Respiratory: Denies cough Gastrointestinal: Reports abdominal pain, Denies diarrhea, Denies nausea, Denies vomiting Genitourinary: Denies dysuria, Denies urinary frequency Musculoskeletal: Denies myalgias Integumentary: Denies pruritus, Denies rash Neurological: Denies numbness, Denies weakness Psychiatric: Denies anxiety, Denies depression Endocrine: Denies fatigue, Denies weight change Past Medical History Past Medical History: Liver Disease Additional Past Medical History / Comment(s): Crohn's Ileo colitis with decompensated hepatic cirrhosis, jaundice, on liver transplant list since 02/19 , iron deficiency anemia and pancytopenia, ascites, pedal edema, Acute on chronic kidney disease, esopohageal varicies, portal gastropathy, rectal stricture, primary sclerosing cholangitis, brain abscesses, metabolic acidosis, scrotal abscess History of Any Multi-Drug Resistant Organisms: None Reported Additional Past Surgical History / Comment(s): I&D of scrotum for abcess; paracentesis at [facility] in Apr 2016, PICC line placement left arm Past Anesthesia/Blood Transfusion Reactions: No Reported Reaction Past Psychological History: No Psychological Hx Reported Smoking Status: Never smoker Additional Past Alcohol Use History / Comment(s): Patient has been a lifelong nonsmoker. He denies any medical marijuana, marijuana, street drug or alcohol use. He currently lives alone but his parents stay with him often to help him with his multiple medical problems. He has been on disability due to his Crohn' s disease. 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 There are 2 cats in the home. - Past Family History Father Family Medical History: Hyperlipidemia, Hypertension, Renal Disease Additional Family Medical History / Comment(s): Chrohn's disease Mother Family Medical History: Diabetes Mellitus, Hyperlipidemia, Hypertension, Thyroid Disorder Medications and Allergies Home Medications Medication Instructions Recorded Confirmed Type Ferrous Sulfate [Feosol] 325 mg PO BID 04/14/16 05/07/16 History Folic Acid 1 mg PO DAILY 04/14/16 05/07/16 History Mesalamine [Lialda] 2.4 gm PO DAILY 04/14/16 05/07/16 History Rifaximin [Xifaxan] 550 mg PO BID 04/14/16 05/07/16 History Ursodiol [Actigall] 300 mg PO BID 04/14/16 05/07/16 History Ascorbic Acid [Vitamin C] 250 mg PO DAILY 05/07/16 05/07/16 History Furosemide [Furosemide] 80 mg PO BID 05/07/16 05/07/16 History Magnesium Oxide [Mag-Ox] 250 mg PO DAILY 05/07/16 05/07/16 History Midodrine HCl [Midodrine HCl] 10 mg PO TID 05/07/16 05/07/16 History Potassium Chloride [Klor-Con 10] 40 meq PO DAILY 05/07/16 05/07/16 History Sodium Bicarbonate Tab 650 mg PO TID 05/07/16 05/07/16 History Vitamin A 10,000 unit PO DAILY 05/07/16 05/07/16 History Zinc Sulfate 220 mg PO DAILY 05/07/16 05/07/16 History Allergies Allergy/AdvReac Type Severity Reaction Status Date / Time No Known Allergies Allergy Verified 05/07/16 09:20 Physical Exam Vitals: Vital Signs Temp Pulse Resp BP Pulse Ox 05/09/16 12:41 97.1 F L 78 20 103/56 100 05/09/16 12:10 76 14 106/58 100 05/09/16 11:29 69 14 109/58 100 05/09/16 11:14 69 14 107/57 100 05/09/16 11:02 76 14 102/66 100 05/09/16 10:31 75 14 108/65 100 05/09/16 08:00 97 F L 78 20 92/57 100 05/09/16 03:05 97.1 F L 69 16 103/64 100 05/08/16 23:41 97.8 F 69 16 111/65 100 05/08/16 20:00 96.1 F L 65 16 110/75 100 05/08/16 16:00 96.8 F L 66 14 98/56 100 Intake and Output 05/08/16 05/09/16 05/09/16 22:59 06:59 14:59 Intake Total 100 240 Output Total 818 534 7199 Balance -400 -555 -5236 Intake: Intake, IV Titration 100 Amount Meropenem 2 gm In Sodium 100 Chloride 0.9% 100 ml @ 200 mls/hr IVPB Q8HR [facility] Rx#:[id number] Oral 240 Output: Urine 500 200 200 Other 6910 Other: Voiding Method Urinal Urinal # Voids 1 1 # Bowel Movements 1 1 1 Weight 98 kg Gen: This is a 40-year-old male. He appears to be in no acute distress. HEENT: Head is atraumatic, normocephalic. Pupils equal, round. Sclerae is anicteric. Oral mucous membranes are moist. NECK: Supple. No JVD. No lymphadenopathy. No thyromegaly. LUNGS: Clear to auscultation. No wheezes or rhonchi. No intercostal retractions. HEART: Regular rate and rhythm. No murmur. ABDOMEN: Soft. Positive ascites. Bowel sounds are present. No masses. No tenderness. EXTREMITIES: 3+ pedal edema. Dorsalis pedis is weak bilaterally. PICC line to the left upper arm without tenderness. No drainage noted. NEUROLOGICAL: Patient is awake, alert and oriented x3. Cranial nerves 2 through 12 are grossly intact. Generalized weakness. Flat affect. Results Results: Laboratory Results WBC 6.1 k/uL (3.8-10.6) 05/09/16 06:39 RBC 2.49 m/uL (4.30-5.90) L 05/09/16 06:39 Hgb 8.3 gm/dL (13.0-17.5) L 05/09/16 06:39 Hct 26.2 % (39.0-53.0) L 05/09/16 06:39 MCV 105.2 fL (80.0-100.0) H 05/09/16 06:39 MCH 33.4 pg (25.0-35.0) 05/09/16 06:39 MCHC 31.8 g/dL (31.0-37.0) 05/09/16 06:39 RDW 20.5 % (11.5-15.5) H 05/09/16 06:39 Plt Count 79 k/uL (150-450) L 05/09/16 06:39 Neutrophils % 89 % 05/08/16 06:34 Neutrophils % (Manual) 79.0 % 05/09/16 06:39 Band Neutrophils % 2.0 % 05/09/16 06:39 Lymphocytes % 6 % 05/08/16 06:34 Lymphocytes % (Manual) 15.0 % 05/09/16 06:39 Monocytes % 4 % 05/08/16 06:34 Monocytes % (Manual) 3.0 % 05/09/16 06:39 Eosinophils % 0 % 05/08/16 06:34 Eosinophils % (Manual) 1.0 % 05/09/16 06:39 Basophils % 0 % 05/08/16 06:34 Metamyelocytes % 1.0 % 05/07/16 03:55 Myelocytes % 0.5 % 05/07/16 03:55 Neutrophils # 5.9 k/uL (1.3-7.7) 05/08/16 06:34 Neutrophils # (Manual) 4.9 k/uL (1.3-7.7) 05/09/16 06:39 Lymphocytes # 0.4 k/uL (1.0-4.8) L 05/08/16 06:34 Lymphocytes # (Manual) 0.9 k/uL (1.0-4.8) L 05/09/16 06:39 Monocytes # 0.3 k/uL (0-1.0) 05/08/16 06:34 Monocytes # (Manual) 0.2 k/uL (0-1.0) 05/09/16 06:39 Eosinophils # 0.0 k/uL (0-0.7) 05/08/16 06:34 Eosinophils # (Manual) 0.1 k/uL (0-0.7) 05/09/16 06:39 Basophils # 0.0 k/uL (0-0.2) 05/08/16 06:34 Nucleated RBCs 0 /100 WBC (0-0) 05/09/16 06:39 Manual Slide Review Performed 05/08/16 18:42 Hypochromasia Slight 05/09/16 06:39 Poikilocytosis Slight 05/07/16 12:30 Poikilocytosis (manual Present 05/09/16 06:39 Anisocytosis Moderate 05/09/16 06:39 Anisocytosis (manual) Present 05/08/16 18:42 Macrocytosis Marked 05/09/16 06:39 Spherocytes Present 05/08/16 06:34 Crenated Cell Present 05/08/16 06:34 Fragmented RBCs Present 05/08/16 18:42 Retic Count 7.7 % (0.5-2.0) H 05/08/16 18:42 PT 16.1 sec (9.0-12.0) H 05/09/16 06:39 INR 1.7 (<1.1) 05/09/16 06:39 Sodium 138 mmol/L (137-145) 05/09/16 06:39 Potassium 3.6 mmol/L (3.5-5.1) 05/09/16 06:39 Chloride 110 mmol/L (98-107) H 05/09/16 06:39 Carbon Dioxide 16 mmol/L (22-30) L 05/09/16 06:39 Anion Gap 12 mmol/L 05/09/16 06:39 BUN 51 mg/dL (9-20) H 05/09/16 06:39 Creatinine 1.39 mg/dL (0.66-1.25) H 05/09/16 06:39 Est GFR (MDRD) Af Amer >60 (>60 ml/min/1.73 sqM) 05/09/16 06:39 Est GFR (MDRD) Non-Af 57 (>60 ml/min/1.73 sqM) 05/09/16 06:39 Glucose 70 mg/dL (74-99) L 05/09/16 06:39 POC Glucose (mg/dL) 135 mg/dL (75-99) H 05/07/16 19:51 POC Glu [employer] Bess Wiggins 05/07/16 19:51 Calcium 7.6 mg/dL (8.4-10.2) L 05/09/16 06:39 Phosphorus 6.2 mg/dL (2.5-4.5) H 05/07/16 12:30 Magnesium 1.6 mg/dL (1.6-2.3) 05/07/16 12:30 Iron 37 ug/dL (49-181) L 05/08/16 18:42 TIBC 173 ug/dL (261-462) L 05/08/16 18:42 % Saturation 21.4 % (20-50) 05/08/16 18:42 Ferritin 203 ng/mL (18-464) 05/08/16 18:42 Total Bilirubin 7.8 mg/dL (0.2-1.3) H 05/09/16 06:39 AST 85 U/L (17-59) H 05/09/16 06:39 ALT 54 U/L (21-72) 05/09/16 06:39 Alkaline Phosphatase 174 U/L (38-126) H 05/09/16 06:39 Ammonia 32 umol/L (<30) H 05/07/16 15:24 Total Protein 4.6 g/dL (6.3-8.2) L 05/09/16 06:39 Albumin 1.7 g/dL (3.5-5.0) L 05/09/16 06:39 Amylase 96 U/L (30-110) 05/07/16 12:30 Lipase 351 U/L (23-300) H 05/07/16 12:30 Urine Color Dark Brown 05/07/16 18:29 Urine Appearance Clear (Clear) 05/07/16 18:29 Urine pH 5.5 (5.0-8.0) 05/07/16 18:29 Ur Specific [place] 1.016 (1.001-1.035) 05/07/16 18:29 Urine Protein Trace (Negative) H 05/07/16 18:29 Urine Glucose (UA) Negative (Negative) 05/07/16 18:29 Urine Ketones 1+ (Negative) H 05/07/16 18:29 Urine Blood Negative (Negative) 05/07/16 18:29 Urine Nitrate Negative (Negative) 05/07/16 18:29 Urine Bilirubin 2+ (Negative) H 05/07/16 18:29 Urine Urobilinogen 3.0 mg/dL (<2.0) 05/07/16 18:29 Ur Leukocyte Esterase Negative (Negative) 05/07/16 18:29 CBC & Chem 7: 05/09/16 06:39 05/09/16 06:39 Labs: Abnormal Lab Results - Last 24 Hours (Table) 05/08/16 05/08/16 05/08/16 Range/Units 18:42 18:42 18:42 RBC 2.42 L (4.30-5.90) m/uL Hgb 8.0 L (13.0-17.5) gm/dL Hct 25.3 L (39.0-53.0) % MCV 104.4 H (80.0-100.0) fL RDW 20.7 H (11.5-15.5) % Plt Count 97 L (150-450) k/uL Lymphocytes # (Manual) 0.8 L (1.0-4.8) k/uL Retic Count 7.7 H (0.5-2.0) % PT (9.0-12.0) sec Chloride (98-107) mmol/L Carbon Dioxide (22-30) mmol/L BUN (9-20) mg/dL Creatinine (0.66-1.25) mg/dL Glucose (74-99) mg/dL Calcium (8.4-10.2) mg/dL Iron 37 L (49-181) ug/dL TIBC 173 L (261-462) ug/dL Total Bilirubin (0.2-1.3) mg/dL AST (17-59) U/L Alkaline Phosphatase (38-126) U/L Total Protein (6.3-8.2) g/dL Albumin (3.5-5.0) g/dL 05/09/16 05/09/16 05/09/16 Range/Units 06:39 06:39 06:39 RBC 2.49 L (4.30-5.90) m/uL Hgb 8.3 L (13.0-17.5) gm/dL Hct 26.2 L (39.0-53.0) % MCV 105.2 H (80.0-100.0) fL RDW 20.5 H (11.5-15.5) % Plt Count 79 L (150-450) k/uL Lymphocytes # (Manual) 0.9 L (1.0-4.8) k/uL Retic Count (0.5-2.0) % PT 16.1 H (9.0-12.0) sec Chloride 110 H (98-107) mmol/L Carbon Dioxide 16 L (22-30) mmol/L BUN 51 H (9-20) mg/dL Creatinine 1.39 H (0.66-1.25) mg/dL Glucose 70 L (74-99) mg/dL Calcium 7.6 L (8.4-10.2) mg/dL Iron (49-181) ug/dL TIBC (261-462) ug/dL Total Bilirubin 7.8 H (0.2-1.3) mg/dL AST 85 H (17-59) U/L Alkaline Phosphatase 174 H (38-126) U/L Total Protein 4.6 L (6.3-8.2) g/dL Albumin 1.7 L (3.5-5.0) g/dL Assessment and Plan Plan: This is a 40-year-old male who presents to the hospital with abdominal ascites with history of Crohn's colitis and 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 Patient is also under treatment for brain abscesses and also recent scrotal abscess status post I&D done at [facility]. Patient's ID physician is Dr. Perez Villarreal and he has appointment scheduled for May 18. Patient will be maintained on meropenem at 2 g every 8 hours to continue as the initial course was determined to be completed May 26. Continue supportive care. Further recommendations as patient progresses. The above dictated assessment and findings were discussed with Dr. Conde. The impression and plan of care have been directed as dictated. Nanette Martin nurse practitioner acting as scribe for Dr. Conde. Time with Patient: Greater than 30
[2016-05-09 15:39] LABS: Polychromasia Present; Target Cells Present
--- NOTE | 2016-05-09 18:15 | P.PN ---
Subjective Principal diagnosis: Patient is a pleasant 40-year-old male who is being followed by the neurology service for new onset seizure. Patient has extensive medical history including Crohn's disease, cirrhosis of the liver with ascites. Patient has history of brain abscess which was being treated down at [facility] in antibiotics are being continued here as well. Patient had a witnessed seizure and was started on Keppra IV 750 mg every 12 hours. Patient has not had any recurrent seizures. Patient denies having seizure history. At the time of my evaluation, patient's resting comfortably in bed and appears to be in no acute distress. Objective - Vital Signs Vital signs: Vital Signs Temp 96.8 F L 05/09/16 15:32 Pulse 80 05/09/16 15:32 Resp 20 05/09/16 15:32 BP 97/53 05/09/16 15:32 Pulse Ox 100 05/09/16 15:32 Intake & Output 05/08/16 05/09/16 05/09/16 18:59 06:59 18:59 Intake Total 1100 1220 Output Total 346 997 0002 Balance 800 -400 -6490 Weight 98 kg Intake: IV 400 400 Sodium Chloride 0.9% 1, 400 400 000 ml @ 50 mls/hr IV . Q20H [facility] Rx#:[id number] Intake, IV Titration 300 200 Amount Meropenem 2 gm In Sodium 200 100 Chloride 0.9% 100 ml @ 200 mls/hr IVPB Q8HR [facility] Rx#:[id number] levETIRAcetam IV 750 mg 100 100 In Sodium Chloride 0.9% 100 ml @ 400 mls/hr IVPB Q12HR [facility] Rx#:[id number] Oral 400 620 Output: Urine 300 400 800 Other 6910 Other: Voiding Method Urinal Urinal # Voids 1 1 1 # Bowel Movements 1 1 1 - Exam PHYSICAL EXAM: GENERAL APPEARANCE: Patient is a well-developed, male who appears to be in no acute distress. HEENT: Normocephalic, atraumatic, no facial asymmetry is seen. Neck is supple with no masses felt. CARDIOVASCULAR: Regular rate and rhythm. ABDOMEN: Tender, distended, ascites. EXTREMITIES: Moves all extremities NEUROLOGICAL EXAM: Patient is awake, alert, and oriented 3. Speech and language are normal. Strength is full in all 4 extremities. Sensory exam to light touch is normal in all 4 extremities. No facial asymmetry is seen on cranial nerve testing. No tremors or seizure-like activity is noted. - Labs CBC & Chem 7: 05/09/16 13:53 05/09/16 06:39 Labs: Abnormal Lab Results - Last 24 Hours (Table) 05/08/16 05/08/16 05/08/16 Range/Units 18:42 18:42 18:42 RBC 2.42 L (4.30-5.90) m/uL Hgb 8.0 L (13.0-17.5) gm/dL Hct 25.3 L (39.0-53.0) % MCV 104.4 H (80.0-100.0) fL RDW 20.7 H (11.5-15.5) % Plt Count 97 L (150-450) k/uL Lymphocytes # (1.0-4.8) k/uL Lymphocytes # (Manual) 0.8 L (1.0-4.8) k/uL Retic Count 7.7 H (0.5-2.0) % PT (9.0-12.0) sec Chloride (98-107) mmol/L Carbon Dioxide (22-30) mmol/L BUN (9-20) mg/dL Creatinine (0.66-1.25) mg/dL Glucose (74-99) mg/dL Calcium (8.4-10.2) mg/dL Iron 37 L (49-181) ug/dL TIBC 173 L (261-462) ug/dL Total Bilirubin (0.2-1.3) mg/dL AST (17-59) U/L Alkaline Phosphatase (38-126) U/L Total Protein (6.3-8.2) g/dL Albumin (3.5-5.0) g/dL 05/09/16 05/09/16 05/09/16 Range/Units 06:39 06:39 06:39 RBC 2.49 L (4.30-5.90) m/uL Hgb 8.3 L (13.0-17.5) gm/dL Hct 26.2 L (39.0-53.0) % MCV 105.2 H (80.0-100.0) fL RDW 20.5 H (11.5-15.5) % Plt Count 79 L (150-450) k/uL Lymphocytes # (1.0-4.8) k/uL Lymphocytes # (Manual) 0.9 L (1.0-4.8) k/uL Retic Count (0.5-2.0) % PT 16.1 H (9.0-12.0) sec Chloride 110 H (98-107) mmol/L Carbon Dioxide 16 L (22-30) mmol/L BUN 51 H (9-20) mg/dL Creatinine 1.39 H (0.66-1.25) mg/dL Glucose 70 L (74-99) mg/dL Calcium 7.6 L (8.4-10.2) mg/dL Iron (49-181) ug/dL TIBC (261-462) ug/dL Total Bilirubin 7.8 H (0.2-1.3) mg/dL AST 85 H (17-59) U/L Alkaline Phosphatase 174 H (38-126) U/L Total Protein 4.6 L (6.3-8.2) g/dL Albumin 1.7 L (3.5-5.0) g/dL 05/09/16 Range/Units 13:53 RBC 2.32 L (4.30-5.90) m/uL Hgb 7.6 L (13.0-17.5) gm/dL Hct 24.2 L (39.0-53.0) % MCV 104.2 H (80.0-100.0) fL RDW 20.7 H (11.5-15.5) % Plt Count 82 L (150-450) k/uL Lymphocytes # 0.3 L (1.0-4.8) k/uL Lymphocytes # (Manual) (1.0-4.8) k/uL Retic Count (0.5-2.0) % PT (9.0-12.0) sec Chloride (98-107) mmol/L Carbon Dioxide (22-30) mmol/L BUN (9-20) mg/dL Creatinine (0.66-1.25) mg/dL Glucose (74-99) mg/dL Calcium (8.4-10.2) mg/dL Iron (49-181) ug/dL TIBC (261-462) ug/dL Total Bilirubin (0.2-1.3) mg/dL AST (17-59) U/L Alkaline Phosphatase (38-126) U/L Total Protein (6.3-8.2) g/dL Albumin (3.5-5.0) g/dL Assessment and Plan Plan: Impression: 1. New onset seizure/started on Keppra 2. History of brain abscess/recently treated with meropenem 3. History of cirrhosis of the liver/currently on the liver transplant list 4. History of Crohn's disease 5. Thrombocytopenia 6. Coagulopathy Plan: Patient did experience a witnessed seizure. Seizure most likely related to intracranial process noted on computed tomography scan. Patient was started on Keppra 750 mg twice a day. No further seizures noted. As you recall, patient CT scan of the brain showed multiple lesions consistent with brain abscesses and treatment had been started at [facility]. Continue seizure precautions. Continue neurological checks. EEG was done and is normal. Patient will follow up with neurologist at [facility] after discharge. May switch to oral Keppra 750 mg every 12 hours. Continue current medical treatment. Patient is being followed by oncology and infectious disease. I will continue to follow with you on an as-needed basis. Feel free to call with any questions or concerns. I performed an examination of the patient and discussed the management with the DATA COLLECTION ASSOCIATE. I have reviewed the DATA COLLECTION ASSOCIATE notes and agree with the findings and plan of care.
[2016-05-09 18:58] LABS: Anisocytosis Moderate; Basophils % (A) 0 %; CH 33.4; CHCM 32.3; Eosinophils % (A) 0 %; HDW 3.23; HGB 7.7 gm/dL (13.0-17.5); Hypochromasia Slight; Luc # (Auto) 0.05; Luc % (Auto) 1; Lymphocytes # (A) 0.4 k/uL (1.0-4.8); Lymphocytes % (A) 9 %; MCH 33.6 pg (25.0-35.0); MCV 104.8 fL (80.0-100.0); Macrocytosis Marked; Mean Platelet Volume 6.4; Monocytes # (A) 0.3 k/uL (0-1.0); Monocytes % (A) 8 %; Neutrophils # (A) 3.2 k/uL (1.3-7.7); Neutrophils % (A) 81 %; RBC 2.29 m/uL (4.30-5.90); RDW 20.7 % (11.5-15.5); WBC (Perox) 4.17
[2016-05-09 19:19] LABS: Polychromasia Present
--- NOTE | 2016-05-09 20:28 | P.PN ---
Subjective Date of service 05/08/2016. Progress note being dictated for Dr. Corbin. 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 Seizures last night reported .Maintained on IV Keppra as per neurology. Significant peripheral edema 2-3+. Evaluated by multiple consults with recommendations noted. Afebrile. Most recent INR 1.6. EEG completed, results pending. Brain CT report and multiple lesions in the brain with some edema, largest in the left parietal lobe possible metastatic disease.Chest abdomen/pelvis CT completed results pending. Review of systems: HEENT: Denies headache or focal deficits. Denies any dizziness or lightheadedness. Respiratory: Denies any increased shortness of breath. Cardiac: Denies any chest pain, palpitations. GI: Denies any nausea, vomiting, or diarrhea. Denies any abdominal tenderness. Active Medications Ascorbic Acid (Vitamin C) 250 mg PO DAILY [facility] Last Admin: 05/08/16 08:32 Dose: 250 mg Ferrous Sulfate (Feosol) 325 mg PO BID [facility] Last Admin: 05/08/16 08:33 Dose: 325 mg Folic Acid (Folic Acid) 1 mg PO DAILY [facility] Last Admin: 05/08/16 08:33 Dose: 1 mg Furosemide (Lasix) 80 mg PO BID@0900,1600 [facility] Last Admin: 05/08/16 17:21 Dose: 80 mg Sodium Chloride (Saline 0.9%) 1,000 mls @ 50 mls/hr IV .Q20H [facility] Last Admin: 05/08/16 11:47 Dose: 50 mls/hr Meropenem 2 gm/ Sodium (Chloride) 100 mls @ 200 mls/hr IVPB Q8HR [facility] Last Admin: 05/08/16 17:21 Dose: 200 mls/hr Levetiracetam 750 mg/ Sodium (Chloride) 107.5 mls @ 400 mls/hr IVPB Q12HR [facility] Last Admin: 05/08/16 08:41 Dose: 400 mls/hr Iohexol (Omnipaque 350 Mg/Ml (For Oral Use)) 25 ml PO Q60M PRN PRN Reason: CT Scan Stop: 05/09/16 13:10 Last Admin: 05/08/16 15:01 Dose: 25 ml Lorazepam (Ativan) 0.5 mg PO Q6HR PRN PRN Reason: Anxiety Lorazepam (Ativan) 1 mg IV Q5M PRN PRN Reason: Seizures Magnesium Oxide (Mag-Ox) 250 mg PO DAILY [facility] Last Admin: 05/08/16 08:32 Dose: 250 mg Melatonin (Melatonin) 3 mg PO HS PRN PRN Reason: Insomnia Mesalamine (Delzicol) 800 mg PO TID [facility] Last Admin: 05/08/16 17:21 Dose: 800 mg Midodrine (Proamatine) 10 mg PO TID [facility] Last Admin: 05/08/16 17:21 Dose: 10 mg Naloxone HCl (Narcan) 0.2 mg IV Q2M PRN PRN Reason: Opioid Reversal Pantoprazole Sodium (Protonix) 40 mg IV DAILY [facility] Last Admin: 05/08/16 08:33 Dose: 40 mg Potassium Chloride (K-Dur 20) 40 meq PO DAILY [facility] Last Admin: 05/08/16 08:32 Dose: 40 meq Rifaximin (Xifaxan) 550 mg PO BID [facility] Last Admin: 05/08/16 08:33 Dose: 550 mg Sodium Bicarbonate (Sodium Bicarbonate Tab) 650 mg PO TID [facility] Last Admin: 05/08/16 17:21 Dose: 650 mg Zinc Sulfate (Orazinc) 220 mg PO DAILY [facility] Last Admin: 05/08/16 08:32 Dose: 220 mg Objective - Vital Signs Vital signs: Vital Signs Temp 96.8 F L 05/08/16 16:00 Pulse 66 05/08/16 16:00 Resp 14 05/08/16 16:00 BP 98/56 05/08/16 16:00 Pulse Ox 100 05/08/16 16:00 Intake & Output 05/07/16 05/08/16 05/08/16 18:59 06:59 18:59 Intake Total 100 1000 Balance 100 1000 Weight 98.43 kg Intake: IV 100 400 Sodium Chloride 0.9% 1, 100 400 000 ml @ 50 mls/hr IV . Q20H [facility] Rx#:[id number] Intake, IV Titration 200 Amount Meropenem 2 gm In Sodium 100 Chloride 0.9% 100 ml @ 200 mls/hr IVPB Q8HR [facility] Rx#:[id number] levETIRAcetam IV 750 mg 100 In Sodium Chloride 0.9% 100 ml @ 400 mls/hr IVPB Q12HR [facility] Rx#:[id number] Oral 400 Other: Voiding Method Urinal Urinal Urinal # Voids 2 2 1 # Bowel Movements 1 1 1 - Exam PHYSICAL EXAM: VITAL SIGNS: [As above] GENERAL: [Sitting up in bed, jaundiced, no acute distress, seizure precautions maintained] HEENT: [Pupils equal conjunctiva normal.] NECK: [Supple, no JVD] RESPIRATORY EFFORT:[Increased] LUNGS: [Essentially clear, bilateral bases diminished, no crackles or wheezes, no rhonchi] CARDIOVASCULAR[regular S1 and S2, positive edema] GI: [Abdomen soft, distended, positive ascites, nontender, no organomegaly, positive bowel sounds. No guarding.] PSYCH: [Alert and oriented -3, mood and affect normal. NEURO: No focal deficits, strength and sensation grossly intact. - Labs CBC & Chem 7: 05/09/16 18:28 05/09/16 06:39 Labs: Abnormal Lab Results - Last 24 Hours (Table) 05/07/16 05/07/16 05/07/16 Range/Units 18:29 19:51 23:00 RBC 2.35 L (4.30-5.90) m/uL Hgb 7.8 L (13.0-17.5) gm/dL Hct 24.7 L (39.0-53.0) % MCV 104.7 H (80.0-100.0) fL RDW 20.6 H (11.5-15.5) % Plt Count 88 L (150-450) k/uL Lymphocytes # 0.4 L (1.0-4.8) k/uL Sodium (137-145) mmol/L Chloride (98-107) mmol/L Carbon Dioxide (22-30) mmol/L BUN (9-20) mg/dL Creatinine (0.66-1.25) mg/dL POC Glucose (mg/dL) 135 H (75-99) mg/dL Calcium (8.4-10.2) mg/dL Total Bilirubin (0.2-1.3) mg/dL Total Protein (6.3-8.2) g/dL Albumin (3.5-5.0) g/dL Urine Protein Trace H (Negative) Urine Ketones 1+ H (Negative) Urine Bilirubin 2+ H (Negative) 05/08/16 05/08/16 Range/Units 06:34 06:34 RBC 2.22 L (4.30-5.90) m/uL Hgb 7.4 L (13.0-17.5) gm/dL Hct 23.1 L (39.0-53.0) % MCV 104.4 H (80.0-100.0) fL RDW 20.7 H (11.5-15.5) % Plt Count 82 L (150-450) k/uL Lymphocytes # 0.4 L (1.0-4.8) k/uL Sodium 134 L (137-145) mmol/L Chloride 109 H (98-107) mmol/L Carbon Dioxide 15 L (22-30) mmol/L BUN 48 H (9-20) mg/dL Creatinine 1.70 H (0.66-1.25) mg/dL POC Glucose (mg/dL) (75-99) mg/dL Calcium 7.8 L (8.4-10.2) mg/dL Total Bilirubin 6.9 H (0.2-1.3) mg/dL Total Protein 4.1 L (6.3-8.2) g/dL Albumin 1.5 L (3.5-5.0) g/dL Urine Protein (Negative) Urine Ketones (Negative) Urine Bilirubin (Negative) Assessment and Plan Plan: 1. Ascites secondary to liver cirrhosis secondary to primary sclerosing cholangitis secondary to Crohn's disease ]. 2. [Recent brain abscess on IV meropenem via PICC line outpatient. 3. [ New-onset seizures, on Keppra 4. [ Anemia, macrocytic, possibly nutritional, in a patient with history of iron deficiency anemia and pancytopenia ]. 5. [ Thrombocytopenia secondary to liver disease ]. 6. [ Coagulopathy secondary to chronic liver disease ]. 7. [ Acute on chronic kidney disease, multifactorial ]. 8. Hypocalcemia 9. Hyperbilirubinemia with mild to moderate protein calorie malnutrition 10. Increased lipase 11. History of esophageal varices and portal gastropathy 12. Recent stricture 13. Scrotal abscess and [place] gangrene status post I&D Plan: Continue on current medication regime , broad-spectrum antibiotics,Keppra , monitoring and symptomatic treatment. Chest abdomen/pelvis CT results pending. Maintain ,seizure precautions. Paracentesis scheduled for tomorrow. Daily INR. Family at bedside, updated on plan a care, verbalized understanding of and agreement with. Prognosis guarded. Further recommendations to follow. The impression and plan of care has been dictated as directed. : I performed a H&P examination of this patient and discussed the same with the dictator. I agree with the dictator's note. Any additional findings/opinions/ etc. will be noted.
[2016-05-09] MEDS: levETIRAcetam 250 MG TAB PO SCH (20:50)
--- NOTE | 2016-05-09 21:37 | PN ---
DATE OF SERVICE: 05/09/2016 This 40-year-old gentleman admitted with abdominal distension and ascites, also had abdominal paracentesis. The patient also had seizures and multiple intracranial lesions. I have seen and evaluated the patient with the nurse practitioner. Please refer to the nurse practitioner's notes and impressions documented as scribe for further information. Will continue the antibiotics. Continue with current medications. The prognosis is guarded because of multiple complex medical issues.
--- NOTE | 2016-05-09 21:58 | P.CON ---
Consult Note - . Consult date: 05/09/16 Assessment/Plan:: This is a 40-year-old male. 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 He is on the liver transplant list at [facility]. He was recently hospitalized at [facility] at which time he was found to have a scrotal abscess related to his Crohn's disease for which she underwent an I&D. He had persistent leukocytosis and headaches for which he underwent a CAT scan of the brain that apparently showed multiple small abscesses and he was seen by infectious disease, Dr. Perez Villarreal. Patient had a PICC line placed and has been on home IV antibiotics with meropenem 2 g every 8 hours and to complete the course on May 26. Patient was discharged from [facility] on April 29. While in the hospital he also underwent a paracentesis on April 28 with 2 L of fluid removed. He apparently presented to [facility] complaining of abdominal discomfort and had 2 bright red stools. Patient normally has 5-6 bowel movements per day. He was transferred as a direct admission to [facility]. He has been seen in consultation by Dr. Pantoja with recommendations for paracentesis today and discharged home with follow-up at [facility] on Sunday. He has undergone a CAT scan of the brain which showed multiple lesions in the brain was some edema with the largest at the right parietal lobe could be metastatic disease. He underwent a CAT scan of the chest abdomen and pelvis that showed masses in the medial right lung up to 8.8, cirrhosis, portal venous hypertension , marked splenomegaly, recanalized from the local vein and severe abdominal pelvic ascites. Massive paraesophageal varices another upper abdominal collaterals. Fluid overload with trace effusions and diffuse anasarca. Mild circumferential wall thickening of the cecum and ascending colon could represent colitis or edema from hypoalbuminemia. Patient had a witnessed seizure on May 07 and has been seen in consultation by neurology. Patient was started on IV Keppra. He has been seen by oncology regarding brain lesion and bicytopenia. Please see the consult note is dictated by nurse practitioner Mrs. Nanette Martin. The patient has been under the care is [facility]. Cultures are processing our facility. Paracentesis has been performed. Antibiotic therapy will be continued as per the protocol meropenem 2 g IV piggyback every 8 through 05/26/2016. If any alteration of cultures occurs then may need to further alter antibiotic therapy. Echo evaluation, assessment and plan as dictated by nurse practitioner Mrs. Nanette Martin.
[2016-05-09] MEDS: SODIUM CHLORIDE 0.9% 1,000 ML IV SCH (23:35)
[2016-05-10 04:27] LABS: Anisocytosis Moderate; CH 34.1; CHCM 33.5; HCT 26.7 % (39.0-53.0); HDW 3.42; HGB 8.6 gm/dL (13.0-17.5); MCH 33.3 pg (25.0-35.0); MCHC 32.2 g/dL (31.0-37.0); MCV 103.4 fL (80.0-100.0); Macrocytosis Marked; Mean Platelet Volume 7.1; Poikilocytosis Slight; RBC 2.59 m/uL (4.30-5.90); WBC 6.8 k/uL (3.8-10.6); WBC (Perox) 7.47
[2016-05-10 04:32] LABS: ALT 51 U/L (21-72); AST 89 U/L (17-59); Alkaline Phosphatase 225 U/L (38-126); Anion Gap 10 mmol/L; Blood Urea Nitrogen 46 mg/dL (9-20); Calcium 7.2 mg/dL (8.4-10.2); Carbon Dioxide 18 mmol/L (22-30); Chloride 108 mmol/L (98-107); Glucose 62 mg/dL (74-99); Magnesium 1.5 mg/dL (1.6-2.3); Non-African American GFR(MDRD) >60 (>60 ml/min/1.73 sqM); Potassium 3.2 mmol/L (3.5-5.1); Sodium 136 mmol/L (137-145); Total Bilirubin 8.2 mg/dL (0.2-1.3); Total Protein 4.3 g/dL (6.3-8.2)
[2016-05-10 04:42] LABS: Add Differential Manual Differential
[2016-05-10] MEDS ORDERED: Potassium Replacement Protocol 1 EACH MISC MISCELLANE PRN (04:42)
[2016-05-10] MEDS ORDERED: Magnesium Replacement Protocol 1 EACH MISC MISCELLANE PRN (04:43)
[2016-05-10 04:44] LABS: Nucleated Red Blood Cells 0 /100 WBC (0-0); Total Cells Counted 100
[2016-05-10 04:46] LABS: Manual Review Performed
[2016-05-10] MEDS: MAGNESIUM SULFATE-D5W PMX 1 GM in DEXTROSE/WATER 1 100ML.BAG IVPB SCH ×2 (05:16→06:19)
[2016-05-10] MEDS: POTASSIUM CHLORIDE ER 20 MEQ TAB.ER PO SCH ×3 (05:17→09:01)
[2016-05-10] MEDS: MEROPENEM 2 GM in SODIUM CHLORIDE 0.9% 100 ML IVPB SCH (08:54)
[2016-05-10] MEDS: MAGNESIUM OXIDE 250 MG TAB PO SCH (09:00)
[2016-05-10] MEDS: SODIUM BICARBONATE TAB 650 MG TAB PO SCH (09:00)
[2016-05-10] MEDS: MESALAMINE 400 MG CAPSULE.DR PO SCH (09:01)
[2016-05-10] MEDS: ASCORBIC ACID 500 MG TAB PO SCH (09:01)
[2016-05-10] MEDS: levETIRAcetam 250 MG TAB PO SCH (09:01)
[2016-05-10] MEDS: RIFAXIMIN 550 MG TABLET PO SCH (09:01)
[2016-05-10] MEDS: FUROSEMIDE 80 MG TAB PO SCH (09:02)
[2016-05-10] MEDS: FERROUS SULFATE 325 MG TAB PO SCH (09:02)
[2016-05-10] MEDS: FOLIC ACID 1 MG TAB PO SCH (09:05)
[2016-05-10] MEDS: MIDODRINE 5 MG TAB PO SCH (09:06)
[2016-05-10] MEDS: PANTOPRAZOLE 40 MG/10 ML VIAL IV SCH (09:06)
[2016-05-10] MEDS: ZINC SULFATE 220 MG CAP PO SCH (09:07)
--- NOTE | 2016-05-10 09:26 | P.PN ---
Subjective Principal diagnosis: Ascites 40-year-old male with a history cirrhosis primary sclerosing cholangitis Crohn' s disease presents with abdominal distention ascites. That is post paracentesis yesterday 6.9 L removal with cytology. Feels better today. More alert. Afebrile. Total bilirubin 8.2. Loose stool; C. difficile negative. Objective - Vital Signs Vital signs: Vital Signs Temp 99.3 F 05/10/16 04:00 Pulse 117 H 05/10/16 04:00 Resp 16 05/10/16 04:00 BP 113/49 05/10/16 04:00 Pulse Ox 100 05/10/16 04:00 Intake & Output 05/09/16 05/10/16 05/10/16 18:59 06:59 18:59 Intake Total 1700 300 Output Total 7710 1475 Balance -6010 -1175 Weight 86 kg Intake: IV 400 Sodium Chloride 0.9% 1, 400 000 ml @ 50 mls/hr IV . Q20H [facility] Rx#:[id number] Intake, IV Titration 200 Amount Meropenem 2 gm In Sodium 100 Chloride 0.9% 100 ml @ 200 mls/hr IVPB Q8HR [facility] Rx#:[id number] levETIRAcetam IV 750 mg 100 In Sodium Chloride 0.9% 100 ml @ 400 mls/hr IVPB Q12HR [facility] Rx#:[id number] Oral 1100 300 Output: Urine 800 1475 Other 6910 Other: # Voids 1 1 # Bowel Movements 1 3 - Exam General appearance: The patient is alert, oriented, in no acute distress. HET: Head is normocephalic and atraumatic. Pupils are equal and reactive. Oropharynx is clear without lesions. Neck: Supple without lymphadenopathy. Trachea midline. Heart: S1 S2. Regular rate and rhythm. Lungs: No crackles or wheezes are heard. Abdomen: Soft, mild ascites with bowel sounds. No peritoneal signs. No palpable organomegaly or masses. Extremities: +2/+3 bilateral lower extremity edema. Neurological: No focal deficits. Strength and sensation are grossly intact. - Labs CBC & Chem 7: 05/10/16 04:07 05/10/16 04:07 Labs: Abnormal Lab Results - Last 24 Hours (Table) 05/08/16 05/09/16 05/09/16 Range/Units 18:42 06:39 13:53 RBC 2.49 L 2.32 L (4.30-5.90) m/uL Hgb 8.3 L 7.6 L (13.0-17.5) gm/dL Hct 26.2 L 24.2 L (39.0-53.0) % MCV 105.2 H 104.2 H (80.0-100.0) fL RDW 20.5 H 20.7 H (11.5-15.5) % Plt Count 79 L 82 L (150-450) k/uL Lymphocytes # 0.3 L (1.0-4.8) k/uL Lymphocytes # (Manual) 0.9 L (1.0-4.8) k/uL Sodium (137-145) mmol/L Potassium (3.5-5.1) mmol/L Chloride (98-107) mmol/L Carbon Dioxide (22-30) mmol/L BUN (9-20) mg/dL Glucose (74-99) mg/dL Calcium (8.4-10.2) mg/dL Magnesium (1.6-2.3) mg/dL Total Bilirubin (0.2-1.3) mg/dL AST (17-59) U/L Alkaline Phosphatase (38-126) U/L Total Protein (6.3-8.2) g/dL Albumin (3.5-5.0) g/dL RBC Folate 2,061 H (280 - 791) ng/mL 05/09/16 05/10/16 05/10/16 Range/Units 18:28 04:07 04:07 RBC 2.29 L 2.59 L (4.30-5.90) m/uL Hgb 7.7 L 8.6 L (13.0-17.5) gm/dL Hct 24.0 L 26.7 L (39.0-53.0) % MCV 104.8 H 103.4 H (80.0-100.0) fL RDW 20.7 H 21.0 H (11.5-15.5) % Plt Count 81 L 88 L (150-450) k/uL Lymphocytes # 0.4 L (1.0-4.8) k/uL Lymphocytes # (Manual) 0.2 L (1.0-4.8) k/uL Sodium 136 L (137-145) mmol/L Potassium 3.2 L (3.5-5.1) mmol/L Chloride 108 H (98-107) mmol/L Carbon Dioxide 18 L (22-30) mmol/L BUN 46 H (9-20) mg/dL Glucose 62 L (74-99) mg/dL Calcium 7.2 L (8.4-10.2) mg/dL Magnesium 1.5 L (1.6-2.3) mg/dL Total Bilirubin 8.2 H (0.2-1.3) mg/dL AST 89 H (17-59) U/L Alkaline Phosphatase 225 H (38-126) U/L Total Protein 4.3 L (6.3-8.2) g/dL Albumin 1.7 L (3.5-5.0) g/dL RBC Folate (280 - 791) ng/mL Assessment and Plan Plan: Impression: 1. Ascites secondary to cirrhosis of the liver primary sclerosing cholangitis status post- large volume paracentesis yesterday with cytology. 2. Recent scrotal abscess multiple brain abscesses for which she was treated [facility] recently. Patient is scheduled to see a neurologist at [facility] after discharge. CT had showed evidence of multiple lesions in the brain but no mass effect. 3. History of primary sclerosing cholangitis and cirrhosis of liver currently on transplant list at [facility] presently on hold because of ongoing infection. 4. Crohn disease with rectal anal strictures. Plan: 1. Supportive measures. 2. Continue with broad-spectrum antibiotics per ID recommendations. 3. Diet as tolerated. 4. Follow-up [facility] for brain lesions as indicated. Return to GI office in 2-3 weeks.
--- NOTE | 2016-05-10 10:30 | P.CRDCN ---
History of Present Illness Consult date: 05/10/16 Requesting physician: Layton Corbin Reason for Consult (text): Steven tach Chief complaint: Shortness of breath and abdominal distention History of present illness: This is a 40-year-old gentleman with history of Crohn's disease, liver cirrhosis , on liver transplant list, iron deficiency anemia, pancytopenia, acute renal injury, denies history of hypertension, no diabetes, no hyperlipidemia, nonsmoker. Patient also has history of ascites which started in February at [facility], he was drained for 1.5 L at that time. He currently has a PICC line in place and is on outpatient antibiotics. A LUCHO was also performed apparently which was negative for any vegetation. He was discharged home from the hospital on April 28. He read presented to [facility] with symptoms of shortness of breath and associated abdominal distention. Patient was admitted here on May 07, cardiology consultation was requested today because of nonsustained ventricular tachycardia which was noted at 3:30 in the morning. Labs were drawn at 4 AM, potassium came back at 3.2, magnesium level I.5. Replacement has been ordered. He has had no further documented arrhythmias on the monitor. Patient was asymptomatic at that time. Past Medical History Past Medical History: Liver Disease Additional Past Medical History / Comment(s): Crohn's Ileo colitis with decompensated hepatic cirrhosis, jaundice, on liver transplant list since 02/19 , iron deficiency anemia and pancytopenia, ascites, pedal edema, Acute on chronic kidney disease, esopohageal varicies, portal gastropathy, rectal stricture, primary sclerosing cholangitis, brain abscesses, metabolic acidosis, scrotal abscess History of Any Multi-Drug Resistant Organisms: None Reported Additional Past Surgical History / Comment(s): I&D of scrotum for abcess; paracentesis at [facility] in Apr 2016, PICC line placement left arm Past Anesthesia/Blood Transfusion Reactions: No Reported Reaction Past Psychological History: No Psychological Hx Reported Smoking Status: Never smoker Additional Past Alcohol Use History / Comment(s): Patient has been a lifelong nonsmoker. He denies any medical marijuana, marijuana, street drug or alcohol use. He currently lives alone but his parents stay with him often to help him with his multiple medical problems. He has been on disability due to his Crohn' s disease. 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 There are 2 cats in the home. - Past Family History Father Family Medical History: Hyperlipidemia, Hypertension, Renal Disease Additional Family Medical History / Comment(s): Chrohn's disease Mother Family Medical History: Diabetes Mellitus, Hyperlipidemia, Hypertension, Thyroid Disorder Medications and Allergies Home Medications Medication Instructions Recorded Confirmed Type Ferrous Sulfate [Feosol] 325 mg PO BID 04/14/16 05/07/16 History Folic Acid 1 mg PO DAILY 04/14/16 05/07/16 History Mesalamine [Lialda] 2.4 gm PO DAILY 04/14/16 05/07/16 History Rifaximin [Xifaxan] 550 mg PO BID 04/14/16 05/07/16 History Ursodiol [Actigall] 300 mg PO BID 04/14/16 05/07/16 History Ascorbic Acid [Vitamin C] 250 mg PO DAILY 05/07/16 05/07/16 History Furosemide [Furosemide] 80 mg PO BID 05/07/16 05/07/16 History Magnesium Oxide [Mag-Ox] 250 mg PO DAILY 05/07/16 05/07/16 History Midodrine HCl [Midodrine HCl] 10 mg PO TID 05/07/16 05/07/16 History Potassium Chloride [Klor-Con 10] 40 meq PO DAILY 05/07/16 05/07/16 History Sodium Bicarbonate Tab 650 mg PO TID 05/07/16 05/07/16 History Vitamin A 10,000 unit PO DAILY 05/07/16 05/07/16 History Zinc Sulfate 220 mg PO DAILY 05/07/16 05/07/16 History Allergies Allergy/AdvReac Type Severity Reaction Status Date / Time No Known Allergies Allergy Verified 05/07/16 09:20 Physical Exam Vitals: Vital Signs Temp Pulse Resp BP Pulse Ox 05/10/16 04:00 99.3 F 117 H 16 113/49 100 05/09/16 23:11 98.1 F 81 16 105/61 100 05/09/16 20:00 96.9 F L 75 16 99/52 100 05/09/16 15:32 96.8 F L 80 20 97/53 100 05/09/16 12:41 97.1 F L 78 20 103/56 100 05/09/16 12:10 76 14 106/58 100 05/09/16 11:29 69 14 109/58 100 05/09/16 11:14 69 14 107/57 100 05/09/16 11:02 76 14 102/66 100 05/09/16 10:31 75 14 108/65 100 Intake and Output 05/09/16 05/10/16 05/10/16 22:59 06:59 14:59 Intake Total 480 300 Output Total 1450 625 Balance -970 -325 Intake: Oral 480 300 Output: Urine 1450 625 Other: # Voids 3 1 # Bowel Movements 3 3 Weight 86 kg PHYSICAL EXAMINATION: HEENT: Head is atraumatic, normocephalic. Pupils equal, round. Neck is supple. There is no elevated jugular venous pressure. HEART EXAMINATION: Heart S1, S2 normal. No murmur or gallop heard. CHEST EXAMINATION: Lungs are clear to auscultation and precussion. No chest wall tenderness is noted on palpation or with deep breathing. ABDOMEN: Soft, positive ascites. Bowel sounds heard.. EXTREMITIES: 1+ peripheral pulses with 3+ evidence of peripheral edema and no calf tenderness noted. PICC line in place in left upper arm. NEUROLOGIC patient is awake, alert and oriented -3. Flat affect. . Results 05/10/16 04:07 05/10/16 04:07 Cardiac Enzymes 05/10/16 Range/Units 04:07 AST 89 H (17-59) U/L CBC 05/09/16 05/09/16 05/09/16 Range/Units 06:39 13:53 18:28 WBC 6.1 5.1 4.0 (3.8-10.6) k/uL RBC 2.49 L 2.32 L 2.29 L (4.30-5.90) m/uL Hgb 8.3 L 7.6 L 7.7 L (13.0-17.5) gm/dL Hct 26.2 L 24.2 L 24.0 L (39.0-53.0) % Plt Count 79 L 82 L 81 L (150-450) k/uL 05/10/16 Range/Units 04:07 WBC 6.8 (3.8-10.6) k/uL RBC 2.59 L (4.30-5.90) m/uL Hgb 8.6 L (13.0-17.5) gm/dL Hct 26.7 L (39.0-53.0) % Plt Count 88 L (150-450) k/uL Comprehensive Metabolic Panel 05/10/16 Range/Units 04:07 Sodium 136 L (137-145) mmol/L Potassium 3.2 L (3.5-5.1) mmol/L Chloride 108 H (98-107) mmol/L Carbon Dioxide 18 L (22-30) mmol/L BUN 46 H (9-20) mg/dL Creatinine 1.20 (0.66-1.25) mg/dL Glucose 62 L (74-99) mg/dL Calcium 7.2 L (8.4-10.2) mg/dL AST 89 H (17-59) U/L ALT 51 (21-72) U/L Alkaline Phosphatase 225 H (38-126) U/L Total Protein 4.3 L (6.3-8.2) g/dL Albumin 1.7 L (3.5-5.0) g/dL Current Medications Generic Name Dose Route Start Last Admin Trade Name Freq PRN Reason Stop Dose Admin Ascorbic Acid 250 mg 05/08/16 09:00 05/10/16 09:01 Vitamin C PO 250 mg DAILY AZIZA Administration Ferrous Sulfate 325 mg 05/07/16 21:00 05/10/16 09:02 Feosol PO 325 mg BID AZIZA Administration Folic Acid 1 mg 05/08/16 09:00 05/10/16 09:05 Folic Acid PO 1 mg DAILY AZIZA Administration Furosemide 80 mg 05/07/16 16:00 05/10/16 09:02 Lasix PO 80 mg BID@0900,1600 AZIZA Administration Sodium Chloride 1,000 mls @ 50 mls/hr 05/07/16 11:30 05/09/16 23:35 Saline 0.9% IV 50 mls/hr .Q20H AZIZA Administration Meropenem 2 gm/ Sodium 100 mls @ 200 mls/hr 05/07/16 16:00 05/10/16 08:54 Chloride IVPB 200 mls/hr Q8HR AZIZA Administration Levetiracetam 750 mg 05/09/16 21:00 05/10/16 09:01 Keppra PO 750 mg Q12HR AZIZA Administration Lorazepam 0.5 mg 05/07/16 11:34 Ativan PO Q6HR PRN Anxiety Lorazepam 1 mg 05/07/16 20:04 Ativan IV Q5M PRN Seizures Magnesium Oxide 250 mg 05/08/16 09:00 05/10/16 09:00 Mag-Ox PO 250 mg DAILY AZIZA Administration Melatonin 3 mg 05/07/16 21:00 Melatonin PO HS PRN Insomnia Mesalamine 800 mg 05/07/16 16:00 05/10/16 09:01 Delzicol PO 800 mg TID AZIZA Administration Midodrine 10 mg 05/07/16 16:00 05/10/16 09:06 Proamatine PO 10 mg TID AZIZA Administration Miscellaneous Information 1 each 05/10/16 04:43 Magnesium Per Protocol MISCELLANE DAILY PRN Per Protocol Protocol Miscellaneous Information 1 each 05/10/16 04:42 Potassium Per Protocol MISCELLANE DAILY PRN Per Protocol Protocol Naloxone HCl 0.2 mg 05/07/16 11:34 Narcan IV Q2M PRN Opioid Reversal Pantoprazole Sodium 40 mg 05/07/16 11:45 05/10/16 09:06 Protonix IV 40 mg DAILY AZIZA Administration Potassium Chloride 40 meq 05/08/16 09:00 05/10/16 09:01 K-Dur 20 PO 40 meq DAILY AZIZA Administration Rifaximin 550 mg 05/07/16 12:00 05/10/16 09:01 Xifaxan PO 550 mg BID AZIZA Administration Sodium Bicarbonate 650 mg 05/07/16 16:00 05/10/16 09:00 Sodium Bicarbonate Tab PO 650 mg TID AZIZA Administration Zinc Sulfate 220 mg 05/08/16 09:00 05/10/16 09:07 Orazinc PO 220 mg DAILY AZIAZ Administration Intake and Output 05/09/16 05/10/16 05/10/16 22:59 06:59 14:59 Intake Total 480 300 Output Total 1450 625 Balance -970 -325 Intake: Oral 480 300 Output: Urine 1450 625 Other: # Voids 3 1 # Bowel Movements 3 3 Weight 86 kg 05/10/16 04:07 05/10/16 04:07 EKG Interpretations (text) EKG on admission shows a normal sinus rhythm with no acute changes. Assessment and Plan Plan: Assessment and plan #1 shortness of breath with evidence of abdominal distention with associated ascites #2 history of recent brain abscess on IV antibiotics as an outpatient #3 cirrhosis of the liver secondary to cholangitis secondary to Crohn's #4 history of iron deficiency anemia and pancytopenia # 5 thrombocytopenia #6 coagulopathy secondary to chronic liver disease #7 acute on chronic kidney disease #8 history of ascites with prior paracentesis #9 history of esophageal varices #10 hypokalemia, being replaced #11 hypomagnesemia, being replaced #1244 complex run of non-sustained ventricular tachycardia, likely secondary to hypokalemia and hypomagnesemia. Plan We'll obtain an echocardiogram with Doppler study. We will also replace potassium and magnesium. Start the patient on low-dose beta j carlos. Further recommendations to follow. DNP note has been reviewed, I agree with a documented findings and plan of care. Patient was seen and examined.
[2016-05-10 12:33] VITALS: RESP 18; TEMP 98.5
[2016-05-10 12:33] LABS: Magnesium 1.8 mg/dL (1.6-2.3)
--- NOTE | 2016-05-10 12:41 | P.CNPUL ---
History of Present Illness Consult date: 05/10/16 Reason for consult: other Chief complaint: Abdominal distention History of present illness: This a 40-year-old gentleman who apparently was admitted on May 07 and I'm just now getting a consult for abdominal distention. The patient has a history of multiple medical problems including long-standing Crohn's disease primary sclerosing cholangitis liver disease secondary to Crohn's disease acute kidney injury and a number of other medical problems including hepatic cirrhosis. The patient apparently patient's on the liver transplant list at [facility] since February 2016. The patient was apparently admitted with a diagnosis of abdominal distention worsening jaundice as well as shortness of breath abdominal distention. The patient was transferred down from [facility] for further evaluation. Currently not having any lung issues. Denies any cough wheezing shortness of breath. Not coughing up any phlegm. States is a lifelong nonsmoker. Review of Systems A 12 point review of system is positive for primarily abdominal distention some mild abdominal pain under the GI system. There are no pulmonary complaints at this time clinic shortness of breath cough or wheezing phlegm production coughing up blood or any other complaints for that matter. Past Medical History Past Medical History: Liver Disease Additional Past Medical History / Comment(s): Crohn's Ileo colitis with decompensated hepatic cirrhosis, jaundice, on liver transplant list since 02/19 , iron deficiency anemia and pancytopenia, ascites, pedal edema, Acute on chronic kidney disease, esopohageal varicies, portal gastropathy, rectal stricture, primary sclerosing cholangitis, brain abscesses, metabolic acidosis, scrotal abscess History of Any Multi-Drug Resistant Organisms: None Reported Additional Past Surgical History / Comment(s): I&D of scrotum for abcess; paracentesis at [facility] in Apr 2016, PICC line placement left arm Past Anesthesia/Blood Transfusion Reactions: No Reported Reaction Past Psychological History: No Psychological Hx Reported Smoking Status: Never smoker Additional Past Alcohol Use History / Comment(s): Patient has been a lifelong nonsmoker. He denies any medical marijuana, marijuana, street drug or alcohol use. He currently lives alone but his parents stay with him often to help him with his multiple medical problems. He has been on disability due to his Crohn' s disease. 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 There are 2 cats in the home. - Past Family History Father Family Medical History: Hyperlipidemia, Hypertension, Renal Disease Additional Family Medical History / Comment(s): Chrohn's disease Mother Family Medical History: Diabetes Mellitus, Hyperlipidemia, Hypertension, Thyroid Disorder Medications and Allergies Home Medications Medication Instructions Recorded Confirmed Type Ferrous Sulfate [Feosol] 325 mg PO BID 04/14/16 05/07/16 History Folic Acid 1 mg PO DAILY 04/14/16 05/07/16 History Mesalamine [Lialda] 2.4 gm PO DAILY 04/14/16 05/07/16 History Rifaximin [Xifaxan] 550 mg PO BID 04/14/16 05/07/16 History Ursodiol [Actigall] 300 mg PO BID 04/14/16 05/07/16 History Ascorbic Acid [Vitamin C] 250 mg PO DAILY 05/07/16 05/07/16 History Furosemide [Furosemide] 80 mg PO BID 05/07/16 05/07/16 History Magnesium Oxide [Mag-Ox] 250 mg PO DAILY 05/07/16 05/07/16 History Midodrine HCl [Midodrine HCl] 10 mg PO TID 05/07/16 05/07/16 History Potassium Chloride [Klor-Con 10] 40 meq PO DAILY 05/07/16 05/07/16 History Sodium Bicarbonate Tab 650 mg PO TID 05/07/16 05/07/16 History Vitamin A 10,000 unit PO DAILY 05/07/16 05/07/16 History Zinc Sulfate 220 mg PO DAILY 05/07/16 05/07/16 History Allergies Allergy/AdvReac Type Severity Reaction Status Date / Time No Known Allergies Allergy Verified 05/07/16 09:20 Physical Exam Osteopathic Statement: *. No significant issues noted on an osteopathic structural exam other than those noted in the History and Physical/Consult. Vitals: Vital Signs Temp Pulse Resp BP Pulse Ox 05/10/16 08:00 98.5 F 100 18 110/56 100 05/10/16 04:00 99.3 F 117 H 16 113/49 100 05/09/16 23:11 98.1 F 81 16 105/61 100 05/09/16 20:00 96.9 F L 75 16 99/52 100 05/09/16 15:32 96.8 F L 80 20 97/53 100 05/09/16 12:41 97.1 F L 78 20 103/56 100 Intake and Output 05/09/16 05/10/16 05/10/16 22:59 06:59 14:59 Intake Total 480 300 600 Output Total 1450 625 150 Balance -970 -325 450 Intake: Oral 480 300 600 Output: Urine 1450 625 150 Other: Voiding Method Urinal # Voids 3 1 2 # Bowel Movements 3 3 2 Weight 86 kg No acute distress, oriented 3. Low bit slow in his responses. No respiratory issues. HEENT examination is grossly unremarkable. He does have scleral icterus. Mucous membranes are moist. Supple. Full range of motion. No adenopathy. Cardiovascular examination reveals regular rhythm rate. S1-S2 normal. No murmur. Lungs are clear breath sounds are equal. Abdomen is distended. Slightly tympanitic. Bowel sounds are noted. Extremities are intact. Results - Laboratory Findings CBC and BMP: 05/10/16 04:07 05/10/16 04:07 PT/INR, D-dimer PT 16.1 sec (9.0-12.0) H 05/09/16 06:39 INR 1.7 (<1.1) 05/09/16 06:39 Abnormal lab findings: Abnormal Labs 05/07/16 05/07/16 05/07/16 03:55 12:30 12:30 RBC 2.34 L 2.32 L Hgb 7.7 L 7.8 L Hct 24.7 L 24.3 L MCV 105.6 H 104.7 H RDW 21.5 H 21.0 H Plt Count 90 L 81 L Lymphocytes # 0.3 L Lymphocytes # (Manual) 0.0 L Retic Count PT 15.3 H Sodium Potassium Chloride Carbon Dioxide BUN Creatinine Glucose POC Glucose (mg/dL) Calcium Phosphorus Magnesium Iron TIBC Total Bilirubin AST Alkaline Phosphatase Ammonia Total Protein Albumin Lipase RBC Folate Urine Protein Urine Ketones Urine Bilirubin 05/07/16 05/07/16 05/07/16 12:30 15:24 18:29 RBC Hgb Hct MCV RDW Plt Count Lymphocytes # Lymphocytes # (Manual) Retic Count PT Sodium Potassium Chloride 108 H Carbon Dioxide 17 L BUN 39 H Creatinine 1.76 H Glucose 116 H POC Glucose (mg/dL) Calcium 8.0 L Phosphorus 6.2 H Magnesium Iron TIBC Total Bilirubin 8.0 H AST Alkaline Phosphatase 133 H Ammonia 32 H Total Protein 4.7 L Albumin 1.7 L Lipase 351 H RBC Folate Urine Protein Trace H Urine Ketones 1+ H Urine Bilirubin 2+ H 05/07/16 05/07/16 05/08/16 19:51 23:00 06:34 RBC 2.35 L 2.22 L Hgb 7.8 L 7.4 L Hct 24.7 L 23.1 L MCV 104.7 H 104.4 H RDW 20.6 H 20.7 H Plt Count 88 L 82 L Lymphocytes # 0.4 L 0.4 L Lymphocytes # (Manual) Retic Count PT Sodium Potassium Chloride Carbon Dioxide BUN Creatinine Glucose POC Glucose (mg/dL) 135 H Calcium Phosphorus Magnesium Iron TIBC Total Bilirubin AST Alkaline Phosphatase Ammonia Total Protein Albumin Lipase RBC Folate Urine Protein Urine Ketones Urine Bilirubin 05/08/16 05/08/16 05/08/16 06:34 18:42 18:42 RBC 2.42 L Hgb 8.0 L Hct 25.3 L MCV 104.4 H RDW 20.7 H Plt Count 97 L Lymphocytes # Lymphocytes # (Manual) 0.8 L Retic Count 7.7 H PT Sodium 134 L Potassium Chloride 109 H Carbon Dioxide 15 L BUN 48 H Creatinine 1.70 H Glucose POC Glucose (mg/dL) Calcium 7.8 L Phosphorus Magnesium Iron TIBC Total Bilirubin 6.9 H AST Alkaline Phosphatase Ammonia Total Protein 4.1 L Albumin 1.5 L Lipase RBC Folate Urine Protein Urine Ketones Urine Bilirubin 05/08/16 05/08/16 05/09/16 18:42 18:42 06:39 RBC 2.49 L Hgb 8.3 L Hct 26.2 L MCV 105.2 H RDW 20.5 H Plt Count 79 L Lymphocytes # Lymphocytes # (Manual) 0.9 L Retic Count PT Sodium Potassium Chloride Carbon Dioxide BUN Creatinine Glucose POC Glucose (mg/dL) Calcium Phosphorus Magnesium Iron 37 L TIBC 173 L Total Bilirubin AST Alkaline Phosphatase Ammonia Total Protein Albumin Lipase RBC Folate 2,061 H Urine Protein Urine Ketones Urine Bilirubin 05/09/16 05/09/16 05/09/16 06:39 06:39 13:53 RBC 2.32 L Hgb 7.6 L Hct 24.2 L MCV 104.2 H RDW 20.7 H Plt Count 82 L Lymphocytes # 0.3 L Lymphocytes # (Manual) Retic Count PT 16.1 H Sodium Potassium Chloride 110 H Carbon Dioxide 16 L BUN 51 H Creatinine 1.39 H Glucose 70 L POC Glucose (mg/dL) Calcium 7.6 L Phosphorus Magnesium Iron TIBC Total Bilirubin 7.8 H AST 85 H Alkaline Phosphatase 174 H Ammonia Total Protein 4.6 L Albumin 1.7 L Lipase RBC Folate Urine Protein Urine Ketones Urine Bilirubin 05/09/16 05/10/16 05/10/16 18:28 04:07 04:07 RBC 2.29 L 2.59 L Hgb 7.7 L 8.6 L Hct 24.0 L 26.7 L MCV 104.8 H 103.4 H RDW 20.7 H 21.0 H Plt Count 81 L 88 L Lymphocytes # 0.4 L Lymphocytes # (Manual) 0.2 L Retic Count PT Sodium 136 L Potassium 3.2 L Chloride 108 H Carbon Dioxide 18 L BUN 46 H Creatinine Glucose 62 L POC Glucose (mg/dL) Calcium 7.2 L Phosphorus Magnesium 1.5 L Iron TIBC Total Bilirubin 8.2 H AST 89 H Alkaline Phosphatase 225 H Ammonia Total Protein 4.3 L Albumin 1.7 L Lipase RBC Folate Urine Protein Urine Ketones Urine Bilirubin - Diagnostic Findings Chest x-ray: image reviewed Assessment and Plan (1) Brain abscess Status: Acute (2) Liver cirrhosis Status: Acute (3) Crohns disease Status: Acute (4) Jaundice Status: Acute Plan: Plan The patient Don will be followed closely. The medications the x-rays in the lab results will be reviewed. Additional recommendations suggestions are forthcoming. At the current time the patient lacks any pulmonary complaints. Denies shortness of breath chest congestion cough wheezing phlegm production or hemoptysis. Time with Patient: Greater than 30
[2016-05-10] MEDS ORDERED: MAGNESIUM SULFATE-D5W PMX 1 GM in DEXTROSE/WATER 1 100ML.BAG IVPB ONE (12:46)
--- NOTE | 2016-05-10 12:48 | ECHOF ---
Referral Reason:[facility] MEASUREMENTS -------- HEIGHT: 170.2 cm WEIGHT: 85.7 kg BP: 113/49 RVIDd: 3.5 cm (< 3.3) IVSd: 1.2 cm (0.6 - 1.1) LVIDd: 5.6 cm (3.9 - 5.3) LVPWd: 1.3 cm (0.6 - 1.1) IVSs: 1.7 cm LVIDs: 3.6 cm LVPWs: 1.8 cm LA Diam: 3.9 cm (2.7 - 3.8) LAESV Index (A-L): 32.78 ml/m Ao Diam: 3.6 cm (2.0 - 3.7) AV Cusp: 2.9 cm (1.5 - 2.6) MV EXCURSION: 28.308 mm (> 18.000) MV EF SLOPE: 59 mm/s (70 - 150) EPSS: 0.6 cm MV E Ronan: 0.71 m/s MV DecT: 279 ms MV A Ronan: 0.65 m/s MV E/A Ratio: 1.08 RAP: 5.00 mmHg RVSP: 29.32 mmHg FINDINGS -------- Sinus rhythm. This was a technically excellent study. The left ventricular size is normal. There is mild concentric left ventricular hypertrophy. Overall left ventricular systolic function is normal with, an EF between 55 - 60 %. The right ventricle is mildly enlarged. LA is midly dilated 29-33ml/m2. The right atrium is normal in size. The aortic valve is trileaflet and appears structurally normal. Normal appearing mitral valve. No mitral regurgitation. Mild tricuspid regurgitation present. Right ventricular systolic pressure is normal at < 35 mmHg. Trace/mild (physiologic) pulmonic regurgitation. The aortic root size is normal. Normal inferior vena cava with normal inspiratory collapse consistent with estimated right atrial pressure of 5 mmHg. There is no pericardial effusion. Small Pleural Effusion. CONCLUSIONS -------- 1. Sinus rhythm. 2. Mild tricuspid regurgitation present. 3. Right ventricular systolic pressure is normal at < 35 mmHg. 4. Trace/mild (physiologic) pulmonic regurgitation. 5. The aortic root size is normal. 6. Normal inferior vena cava with normal inspiratory collapse consistent with estimated right atrial pressure of 5 mmHg. 7. There is no pericardial effusion. 8. Small Pleural Effusion. 9. This was a technically excellent study. 10. The left ventricular size is normal. 11. There is mild concentric left ventricular hypertrophy. 12. Overall left ventricular systolic function is normal with, an EF between 55 - 60 %. 13. The right ventricle is mildly enlarged. 14. LA is midly dilated 29-33ml/m2. 15. The aortic valve is trileaflet and appears structurally normal. 16. Normal appearing mitral valve. LICENSED PROSTHETIST/ORTHOTIST: Shania Motley RDCS
[2016-05-10] MEDS ORDERED: POTASSIUM CHLORIDE 10 MEQ, LIDOCAINE 2% INJ 10 MG in SODIUM CHLORIDE 0.9% 100 ML IVPB SCH (13:00)
--- NOTE | 2016-05-10 13:31 | DS ---
DATE OF ADMISSION: 05/07/2016 DATE OF DISCHARGE: FINAL DIAGNOSES: 1. New onset seizure, generalized clonic secondary to intracranial abscess on Keppra. 2. Ascites secondary to liver cirrhosis secondary to primary sclerosing cholangitis secondary to Crohn disease, status post ascitic aspiration. 3. Recent brain abscess on IV meropenem in outpatient with PICC line from [facility]. 4. Anemia, macrocytic, possibly nutritional in a patient with history of iron deficiency anemia, pancytopenia. 5. Thrombocytopenia secondary to liver disease. 6. Coagulopathy secondary to liver disease. 7. Acute on chronic kidney disease, multifactorial. 8. Hypocalcemia. 9. Hyperbilirubinemia with mild to moderate protein calorie malnutrition. 10. Change in mental status, metabolic encephalopathy. 11. Increased lipase. 12. History of esophageal varices and portal gastropathy. 13. History of recent stricture. 14. History of recent scrotal abscess and Melony gangrene, status post incision and drainage at [facility] 15. FULL CODE. DISCHARGE DISPOSITION: The patient will be transferred in a stable condition with guarded prognosis. HISTORY OF PRESENT ILLNESS: This 40-year-old gentleman with a past medical history of multiple medical problems as mentioned earlier being followed by [facility] in [place] was admitted with generalized tonic-clonic seizures. The patient recently had multiple complex medical issues associated with brain abscess, Melony abscess and scrotal abscess at [facility] as detailed above. Currently the patient was treated with Keppra. The patient had change in mental status. Patient also had persistence of the brain abscess. I discussed the case with [facility] for further evaluation and treatment because of lack of steady improvement and the patient will be transferred [facility] in stable condition with guarded prognosis. Please refer to the med rec sheets for the current list of medications. On exam, currently vitals are stable. CARDIOVASCULAR SYSTEM: S1, S2 muffled. RESPIRATORY: A few scattered rhonchi. ABDOMEN: Soft. Ascites. Hemoglobin is 8.6. Magnesium is 1.8. Potassium is 3.
[2016-05-10 15:25] VITALS: BP 122/66; PULSE 98
--- NOTE | 2016-05-10 19:13 | P.PN ---
Subjective Date of service 05/09/2016. Progress note being dictated for Dr. Corbin. 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 Maintained on IV Keppra. Significant 2-3+ bilateral lower extremity edema .Chest abdomen/pelvis CT-Limited evaluation- reporting portal venous hypertension, marked splenomegaly,, severe abdominal pelvic ascites, masses in the medial right lung base measuring up to 8.8 cm and paraesophageal varices, and other upper abdominal collaterals. Underwent paracentesis with 6.9 L of straw-colored fluid drained. Tolerated procedure well. Cytology pending. Afebrile. Total bili 7.8, INR 1.7. Loose stool ,C. difficile culture pending. Review of systems: HEENT: Denies headache or focal deficits. Denies any dizziness or lightheadedness. Respiratory: Denies any increased shortness of breath. Cardiac: Denies any chest pain, palpitations. GI: Denies any nausea, vomiting, or diarrhea. Denies any abdominal tenderness. Active Medications Ascorbic Acid (Vitamin C) 250 mg PO DAILY [facility] Last Admin: 05/08/16 08:32 Dose: 250 mg Ferrous Sulfate (Feosol) 325 mg PO BID [facility] Last Admin: 05/08/16 08:33 Dose: 325 mg Folic Acid (Folic Acid) 1 mg PO DAILY [facility] Last Admin: 05/08/16 08:33 Dose: 1 mg Furosemide (Lasix) 80 mg PO BID@0900,1600 [facility] Last Admin: 05/08/16 17:21 Dose: 80 mg Sodium Chloride (Saline 0.9%) 1,000 mls @ 50 mls/hr IV .Q20H [facility] Last Admin: 05/08/16 11:47 Dose: 50 mls/hr Meropenem 2 gm/ Sodium (Chloride) 100 mls @ 200 mls/hr IVPB Q8HR [facility] Last Admin: 05/08/16 17:21 Dose: 200 mls/hr Levetiracetam 750 mg/ Sodium (Chloride) 107.5 mls @ 400 mls/hr IVPB Q12HR [facility] Last Admin: 01/02/17 08:41 Dose: 400 mls/hr Iohexol (Omnipaque 350 Mg/Ml (For Oral Use)) 25 ml PO Q60M PRN PRN Reason: CT Scan Stop: 05/09/16 13:10 Last Admin: 05/08/16 15:01 Dose: 25 ml Lorazepam (Ativan) 0.5 mg PO Q6HR PRN PRN Reason: Anxiety Lorazepam (Ativan) 1 mg IV Q5M PRN PRN Reason: Seizures Magnesium Oxide (Mag-Ox) 250 mg PO DAILY [facility] Last Admin: 05/08/16 08:32 Dose: 250 mg Melatonin (Melatonin) 3 mg PO HS PRN PRN Reason: Insomnia Mesalamine (Delzicol) 800 mg PO TID [facility] Last Admin: 05/08/16 17:21 Dose: 800 mg Midodrine (Proamatine) 10 mg PO TID [facility] Last Admin: 05/08/16 17:21 Dose: 10 mg Naloxone HCl (Narcan) 0.2 mg IV Q2M PRN PRN Reason: Opioid Reversal Pantoprazole Sodium (Protonix) 40 mg IV DAILY [facility] Last Admin: 05/08/16 08:33 Dose: 40 mg Potassium Chloride (K-Dur 20) 40 meq PO DAILY [facility] Last Admin: 05/08/16 08:32 Dose: 40 meq Rifaximin (Xifaxan) 550 mg PO BID [facility] Last Admin: 05/08/16 08:33 Dose: 550 mg Sodium Bicarbonate (Sodium Bicarbonate Tab) 650 mg PO TID [facility] Last Admin: 05/08/16 17:21 Dose: 650 mg Zinc Sulfate (Orazinc) 220 mg PO DAILY [facility] Last Admin: 05/08/16 08:32 Dose: 220 mg Objective - Vital Signs Vital signs: Vital Signs Temp 96.8 F L 05/09/16 15:32 Pulse 80 05/09/16 15:32 Resp 20 05/09/16 15:32 BP 97/53 05/09/16 15:32 Pulse Ox 100 05/09/16 15:32 Intake & Output 05/09/16 05/09/16 05/10/16 06:59 18:59 06:59 Intake Total 1700 Output Total 400 7710 250 Balance -400 -6010 -250 Weight 98 kg Intake: IV 400 Sodium Chloride 0.9% 1, 400 000 ml @ 50 mls/hr IV . Q20H [facility] Rx#:[id number] Intake, IV Titration 200 Amount Meropenem 2 gm In Sodium 100 Chloride 0.9% 100 ml @ 200 mls/hr IVPB Q8HR [facility] Rx#:[id number] levETIRAcetam IV 750 mg 100 In Sodium Chloride 0.9% 100 ml @ 400 mls/hr IVPB Q12HR [facility] Rx#:[id number] Oral 1100 Output: Urine 400 800 250 Other 6910 Other: Voiding Method Urinal # Voids 1 1 # Bowel Movements 1 1 - Exam PHYSICAL EXAM: VITAL SIGNS: [As above] GENERAL: [Sitting up in bed, jaundiced, no acute distress] HEENT: [Pupils equal conjunctiva normal.] NECK: [Supple, no JVD] RESPIRATORY EFFORT:[Increased] LUNGS: [Essentially clear, bilateral bases diminished, no crackles or wheezes, no rhonchi] CARDIOVASCULAR[regular S1 and S2, positive edema] GI: [Abdomen soft, distended, ascites, nontender, no organomegaly, positive bowel sounds. No guarding.] PSYCH: [Alert and oriented -3, mood and affect withdrawn. NEURO: No focal deficits, strength and sensation grossly intact. - Labs CBC & Chem 7: 05/10/16 04:07 05/10/16 11:56 Labs: Abnormal Lab Results - Last 24 Hours (Table) 05/09/16 05/09/16 05/09/16 Range/Units 06:39 06:39 06:39 RBC 2.49 L (4.30-5.90) m/uL Hgb 8.3 L (13.0-17.5) gm/dL Hct 26.2 L (39.0-53.0) % MCV 105.2 H (80.0-100.0) fL RDW 20.5 H (11.5-15.5) % Plt Count 79 L (150-450) k/uL Lymphocytes # (1.0-4.8) k/uL Lymphocytes # (Manual) 0.9 L (1.0-4.8) k/uL PT 16.1 H (9.0-12.0) sec Chloride 110 H (98-107) mmol/L Carbon Dioxide 16 L (22-30) mmol/L BUN 51 H (9-20) mg/dL Creatinine 1.39 H (0.66-1.25) mg/dL Glucose 70 L (74-99) mg/dL Calcium 7.6 L (8.4-10.2) mg/dL Total Bilirubin 7.8 H (0.2-1.3) mg/dL AST 85 H (17-59) U/L Alkaline Phosphatase 174 H (38-126) U/L Total Protein 4.6 L (6.3-8.2) g/dL Albumin 1.7 L (3.5-5.0) g/dL 05/09/16 05/09/16 Range/Units 13:53 18:28 RBC 2.32 L 2.29 L (4.30-5.90) m/uL Hgb 7.6 L 7.7 L (13.0-17.5) gm/dL Hct 24.2 L 24.0 L (39.0-53.0) % MCV 104.2 H 104.8 H (80.0-100.0) fL RDW 20.7 H 20.7 H (11.5-15.5) % Plt Count 82 L 81 L (150-450) k/uL Lymphocytes # 0.3 L 0.4 L (1.0-4.8) k/uL Lymphocytes # (Manual) (1.0-4.8) k/uL PT (9.0-12.0) sec Chloride (98-107) mmol/L Carbon Dioxide (22-30) mmol/L BUN (9-20) mg/dL Creatinine (0.66-1.25) mg/dL Glucose (74-99) mg/dL Calcium (8.4-10.2) mg/dL Total Bilirubin (0.2-1.3) mg/dL AST (17-59) U/L Alkaline Phosphatase (38-126) U/L Total Protein (6.3-8.2) g/dL Albumin (3.5-5.0) g/dL Assessment and Plan Plan: 1. Ascites secondary to liver cirrhosis secondary to primary sclerosing cholangitis secondary to Crohn's disease ]. 2. [Recent brain abscess on IV meropenem via PICC line outpatient. Multiple lesions in the brain with some edema, largest in the left parietal lobe possible metastatic disease per brain CT. 3. [ New-onset seizures, on Keppra 4. [ Anemia, macrocytic, possibly nutritional, in a patient with history of iron deficiency anemia and pancytopenia ]. 5. [ Thrombocytopenia secondary to liver disease ]. 6. [ Coagulopathy secondary to chronic liver disease ]. 7. [ Acute on chronic kidney disease, multifactorial ]. 8. Hypocalcemia 9. Hyperbilirubinemia with mild to moderate protein calorie malnutrition 10. Increased lipase 11. History of esophageal varices and portal gastropathy 12. Recent stricture 13. 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 Paracentesis cytology pending.Daily INR. Family at bedside, updated on plan a care, verbalized understanding of and agreement with including potential transfer to [facility] tomorrow if no improvement. Follow closely with multiple consults. Prognosis guarded. Further recommendations to follow. The impression and plan of care has been dictated as directed. : I performed a H&P examination of this patient and discussed the same with the dictator. I agree with the dictator's note. Any additional findings/opinions/ etc. will be noted.
--- NOTE | 2016-05-13 14:39 | EEG ---
DATE OF SERVICE: 05/08/2016 INDICATIONS FOR EXAMINATION: Seizure. AGE: 40Y CURRENT ANTIEPILEPTIC MEDICATIONS: Keppra. DESCRIPTION OF THE PROCEDURE: This EEG was performed using a 21-channel digital electroencephalograph, following the international 10 to 20 system. DESCRIPTION OF RECORDING: From the beginning of the tracing, and with the patient's eyes closed, the background rhythm was mostly consisting of 9 Hz alpha frequency in the posterior occipital leads. No obvious asymmetry is seen. Occasional movement artifacts and lead artifacts are seen. Photic stimulation was performed with a good driving response seen. No pathological waves were elicited. Hyperventilation was not performed. The patient remains awake throughout the tracing. No epileptiform discharges were seen. INTERPRETATION: This awake EEG can be considered within normal limits. There was no asymmetry seen. No epileptiform discharges were noticed. The absence of epileptiform discharges does not rule out the diagnosis of epilepsy, therefore clinical correlation is recommended.
== END 2016-05-10 15:43 | disposition short-term general hospital (02) | DRG 432 ==
LOC: 4MS4W 05-07 02:01 → 6SEL 05-07 20:10
PROVIDERS: ADMIT Internal Medicine; ATTEND Internal Medicine
PROC: 0W9G3ZZ Drainage of Peritoneal Cavity, Percutaneous Approach (ICD-10-PCS; principal; 2016-05-09)
DX: K74.69 Other cirrhosis of liver (principal); G93.41 Metabolic encephalopathy; G06.0 Intracranial abscess and granuloma; I47.2 Ventricular tachycardia; N17.9 Acute kidney failure, unspecified; K83.0 Cholangitis; I85.00 Esophageal varices without bleeding; D61.818 Other pancytopenia; D68.4 Acquired coagulation factor deficiency; E44.0 Moderate protein-calorie malnutrition; E87.2 Acidosis; K76.6 Portal hypertension; R18.8 Other ascites; K50.118 Crohn's disease of large intestine with other complication; K62.5 Hemorrhage of anus and rectum; G40.509 Epileptic seizures related to external causes, not intractable, without status epilepticus; E83.51 Hypocalcemia; N18.9 Chronic kidney disease, unspecified; D69.59 Other secondary thrombocytopenia; D53.9 Nutritional anemia, unspecified; D50.9 Iron deficiency anemia, unspecified; K62.4 Stenosis of anus and rectum; E83.42 Hypomagnesemia; E87.6 Hypokalemia; G93.89 Other specified disorders of brain; R91.8 Other nonspecific abnormal finding of lung field; N49.3 Fournier gangrene; N49.2 Inflammatory disorders of scrotum; E87.70 Fluid overload, unspecified; D73.1 Hypersplenism; E88.09 Other disorders of plasma-protein metabolism, not elsewhere classified; K31.89 Other diseases of stomach and duodenum; R06.02 Shortness of breath; R53.1 Weakness; Z91.81 History of falling; Z79.2 Long term (current) use of antibiotics; Z82.49 Family history of ischemic heart disease and other diseases of the circulatory system; Z83.79 Family history of other diseases of the digestive system; Z84.1 Family history of disorders of kidney and ureter; Z83.49 Family history of other endocrine, nutritional and metabolic diseases; Z68.29 Body mass index [BMI] 29.0-29.9, adult; Z76.82 Awaiting organ transplant status; Z83.3 Family history of diabetes mellitus; Z79.1 Long term (current) use of non-steroidal anti-inflammatories (NSAID); Z79.899 Other long term (current) drug therapy; Z98.890 Other specified postprocedural states
CPT/HCPCS: 49083; 70450; 71010; 71250; 74176; 80053; 80299; 81003; 82140; 82150; 82728; 82747; 83540; 83550; 83690; 83735; 84100; 84132; 85025; 85045; 85610; 87324; 88108; 88305; 93005; 93306; 95819

== ENCOUNTER 2016-05-19 04:32 | Emergency (ER) | payer MEDICARE, BC ==
[2016-05-19] MEDS ORDERED: IPRATROPIUM-ALBUTEROL 3 ML NEB INHALATION STA (04:43)
--- NOTE | 2016-05-19 04:50 | ED ---
General Adult HPI - General Chief complaint: ENT Stated complaint: VARINDER Time Seen by Provider: 05/19/16 04:33 Source: patient, EMS, RN notes reviewed Mode of arrival: EMS Limitations: no limitations - History of Present Illness Initial comments: Patient is a pleasant 40-year-old male presenting to the emergency Department from [facility]. Patient was transferred for difficulty in breathing. Patient states onset of symptoms was today. Patient was just discharged yesterday from [facility]. Patient had a recent brain and scrotal abscess. Patient is on IV meropenem. Patient admits to being fatigued and weak. Patient has a known history of liver failure and kidney failure. Patient was transferred with concerns for dyspnea. Physician at [place] did not feel comfortable transferring patient to [facility] secondary to distance. He did not feel patient needed to be intubated prior to transfer. - Related Data Home Medications Medication Instructions Recorded Confirmed Ferrous Sulfate [Feosol] 65 mg PO BID 04/14/16 05/19/16 Folic Acid 1 mg PO DAILY 04/14/16 05/19/16 Rifaximin [Xifaxan] 550 mg PO BID 04/14/16 05/19/16 Ursodiol [Actigall] 300 mg PO BID 04/14/16 05/19/16 Ascorbic Acid [Vitamin C] 250 mg PO DAILY 05/07/16 05/19/16 Magnesium Oxide [Mag-Ox] 250 mg PO DAILY 05/07/16 05/19/16 Midodrine HCl [Midodrine HCl] 10 mg PO TID 05/07/16 05/19/16 Sodium Bicarbonate Tab 650 mg PO TID 05/07/16 05/19/16 Vitamin A 10,000 unit PO DAILY 05/07/16 05/19/16 Zinc Sulfate 220 mg PO DAILY 05/07/16 05/19/16 Mesalamine [Delzicol] PO 05/19/16 Rifaximin [Xifaxan] 1 PO BID 05/19/16 Vancomycin 1,250 mg IV BID 05/19/16 05/19/16 Previous Rx's Medication Instructions Recorded Meropenem [Merrem] 2 gm IVPB Q8H #54 vial 05/09/16 Allergies Allergy/AdvReac Type Severity Reaction Status Date / Time No Known Allergies Allergy Verified 05/07/16 09:20 Review of Systems ROS Statement: Those systems with pertinent positive or pertinent negative responses have been documented in the HPI. ROS Other: All systems not noted in ROS Statement are negative. Constitutional: Denies: fever Eyes: Denies: eye pain ENT: Denies: ear pain Respiratory: Reports: dyspnea Cardiovascular: Denies: chest pain Endocrine: Reports: fatigue Gastrointestinal: Denies: abdominal pain Genitourinary: Denies: dysuria Musculoskeletal: Denies: back pain Skin: Denies: rash Neurological: Denies: weakness Past Medical History Past Medical History: Liver Disease Additional Past Medical History / Comment(s): Crohn's Ileo colitis with decompensated hepatic cirrhosis, jaundice, on liver transplant list since 02/19 , iron deficiency anemia and pancytopenia, ascites, pedal edema, Acute on chronic kidney disease, esopohageal varicies, portal gastropathy, rectal stricture, primary sclerosing cholangitis, brain abscesses, metabolic acidosis, scrotal abscess History of Any Multi-Drug Resistant Organisms: None Reported Additional Past Surgical History / Comment(s): I&D of scrotum for abcess; paracentesis at [facility] in Apr 2016, PICC line placement left arm Past Anesthesia/Blood Transfusion Reactions: No Reported Reaction Past Psychological History: No Psychological Hx Reported Smoking Status: Never smoker Additional Past Alcohol Use History / Comment(s): Patient has been a lifelong nonsmoker. He denies any medical marijuana, marijuana, street drug or alcohol use. He currently lives alone but his parents stay with him often to help him with his multiple medical problems. He has been on disability due to his Crohn' s disease. 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 There are 2 cats in the home. - Past Family History Father Family Medical History: Hyperlipidemia, Hypertension, Renal Disease Additional Family Medical History / Comment(s): Chrohn's disease Mother Family Medical History: Diabetes Mellitus, Hyperlipidemia, Hypertension, Thyroid Disorder General Exam Limitations: no limitations General appearance: other (Drowsy but easily arousable to voice. Asterixis is present.) Head exam: Present: atraumatic Eye exam: Present: other (Scleral icterus) ENT exam: Present: normal oropharynx Neck exam: Present: normal inspection Respiratory exam: Present: wheezes, rales Cardiovascular Exam: Present: regular rate, normal rhythm GI/Abdominal exam: Present: distended (Ascites. Nontender. Ostomy bag is present.) exam: Present: other (Minimal right scrotal erythema with recent incision. No drainage.) Extremities exam: Present: pedal edema (Patient states chronic, +3). Absent: calf tenderness Neurological exam: Present: alert Expanded Patient oriented to: Present: person, place, time Motor strength exam: RUE: 4, LUE: 5, RLE: 4, LLE: 5 Eye Response: (4) open spontaneously Motor Response: (6) obeys commands Verbal Response: (5) oriented Psychiatric exam: Present: normal affect, normal mood Skin exam: Present: other (Jaundice) Course Vital Signs 05/19/16 05/19/16 05/19/16 04:33 04:56 05:00 Temperature 99 F Pulse Rate 89 90 89 Respiratory 20 14 16 Rate Blood Pressure 103/60 103/60 103/60 O2 Sat by Pulse 100 100 99 Oximetry 05/19/16 05/19/16 05/19/16 05:05 05:13 05:14 Temperature Pulse Rate 88 84 84 Respiratory 16 Rate Blood Pressure 100/59 O2 Sat by Pulse 99 Oximetry 05/19/16 05/19/16 05:30 06:00 Temperature Pulse Rate 82 87 Respiratory 16 16 Rate Blood Pressure 105/59 107/61 O2 Sat by Pulse 99 100 Oximetry - Reevaluation(s) Reevaluation #1: 05/19/16 04:47 No physician or nursing records or lab results or x-rays were sent with patient. [facility] was called and requested to forward records. They state no x-ray or blood work were done. 05/19/16 04:57 Family has arrived and states patient was just discharged last night from [facility]. They state they were concerned more for patient shaking. They admit patient does have some difficulty in breathing however states that is and somewhat chronic over the past few weeks. They state patient had brain CT with several lesions that they were unclear what they were. They did not want to do a biopsy secondary to risk of bleeding. Patient is being treated with antibiotics to see if that improves lesions. EKG Findings - EKG Comments: EKG Findings:: Normal sinus rhythm 87. Normal intervals. Left axis. Minimal voltage criteria for LVH. No acute ST change. Medical Decision Making - Medical Decision Making Patient reexamined and resting comfortably in bed. Vital signs are stable. Secondary to apparent new right-sided weakness, tremors and worsening computed tomography scan case was discussed with [facility], Dr. Dumont, who will accept transfer. Patient and family updated. - Lab Data Result diagrams: 05/19/16 04:45 05/19/16 04:45 Lab Results 05/19/16 05/19/16 05/19/16 Range/Units 04:45 04:45 04:45 WBC 5.0 (3.8-10.6) k/uL RBC 2.45 L (4.30-5.90) m/uL Hgb 8.2 L (13.0-17.5) gm/dL Hct 24.0 L (39.0-53.0) % MCV 98.0 D (80.0-100.0) fL MCH 33.7 (25.0-35.0) pg MCHC 34.4 (31.0-37.0) g/dL RDW 19.8 H (11.5-15.5) % Plt Count 39 L* D (150-450) k/uL Neutrophils % (Manual) 70.5 % Band Neutrophils % 20.0 % Lymphocytes % (Manual) 5.0 % Monocytes % (Manual) 4.0 % Metamyelocytes % 0.5 % Neutrophils # (Manual) 4.5 (1.3-7.7) k/uL Lymphocytes # (Manual) 0.3 L (1.0-4.8) k/uL Monocytes # (Manual) 0.2 (0-1.0) k/uL Nucleated RBCs 0 (0-0) /100 WBC Toxic Granulation Present Polychromasia Present Poikilocytosis Slight Anisocytosis Slight Macrocytosis Slight Target Cells Present Fragmented RBCs Present PT (9.0-12.0) sec INR (<1.1) APTT (22.0-30.0) sec Sodium 136 L (137-145) mmol/L Potassium 4.1 (3.5-5.1) mmol/L Chloride 107 (98-107) mmol/L Carbon Dioxide 19 L (22-30) mmol/L Anion Gap 10 mmol/L BUN 41 H (9-20) mg/dL Creatinine 1.30 H (0.66-1.25) mg/dL Est GFR (MDRD) Af Amer >60 (>60 ml/min/1.73 sqM) Est GFR (MDRD) Non-Af >60 (>60 ml/min/1.73 sqM) Glucose 102 H (74-99) mg/dL Plasma Lactic Acid Luis (0.7-2.0) mmol/L Calcium 8.0 L (8.4-10.2) mg/dL Magnesium 1.9 (1.6-2.3) mg/dL Total Bilirubin 12.6 H (0.2-1.3) mg/dL AST 45 (17-59) U/L ALT 37 (21-72) U/L Alkaline Phosphatase 151 H (38-126) U/L Ammonia (<30) umol/L Total Creatine Kinase <20 L (55-170) U/L CK-MB (CK-2) <0.2 (0.0-2.4) ng/mL CK-MB (CK-2) Rel Index Troponin I <0.012 (0.000-0.034) ng/mL NT-Pro-B Natriuret Pep pg/mL Total Protein 4.4 L (6.3-8.2) g/dL Albumin 2.0 L (3.5-5.0) g/dL 05/19/16 05/19/16 05/19/16 Range/Units 04:45 04:45 04:45 WBC (3.8-10.6) k/uL RBC (4.30-5.90) m/uL Hgb (13.0-17.5) gm/dL Hct (39.0-53.0) % MCV (80.0-100.0) fL MCH (25.0-35.0) pg MCHC (31.0-37.0) g/dL RDW (11.5-15.5) % Plt Count (150-450) k/uL Neutrophils % (Manual) % Band Neutrophils % % Lymphocytes % (Manual) % Monocytes % (Manual) % Metamyelocytes % % Neutrophils # (Manual) (1.3-7.7) k/uL Lymphocytes # (Manual) (1.0-4.8) k/uL Monocytes # (Manual) (0-1.0) k/uL Nucleated RBCs (0-0) /100 WBC Toxic Granulation Polychromasia Poikilocytosis Anisocytosis Macrocytosis Target Cells Fragmented RBCs PT 13.0 H (9.0-12.0) sec INR 1.3 (<1.1) APTT 35.7 H (22.0-30.0) sec Sodium (137-145) mmol/L Potassium (3.5-5.1) mmol/L Chloride (98-107) mmol/L Carbon Dioxide (22-30) mmol/L Anion Gap mmol/L BUN (9-20) mg/dL Creatinine (0.66-1.25) mg/dL Est GFR (MDRD) Af Amer (>60 ml/min/1.73 sqM) Est GFR (MDRD) Non-Af (>60 ml/min/1.73 sqM) Glucose (74-99) mg/dL Plasma Lactic Acid Luis 1.3 (0.7-2.0) mmol/L Calcium (8.4-10.2) mg/dL Magnesium (1.6-2.3) mg/dL Total Bilirubin (0.2-1.3) mg/dL AST (17-59) U/L ALT (21-72) U/L Alkaline Phosphatase (38-126) U/L Ammonia 36 H (<30) umol/L Total Creatine Kinase (55-170) U/L CK-MB (CK-2) (0.0-2.4) ng/mL CK-MB (CK-2) Rel Index Troponin I (0.000-0.034) ng/mL NT-Pro-B Natriuret Pep 1340 pg/mL Total Protein (6.3-8.2) g/dL Albumin (3.5-5.0) g/dL - Radiology Data Radiology results: image reviewed (Chest x-ray shows findings consistent with mild CHF. Computed tomography scan of the brain shows multiple areas of cerebral edema, possible metastatic disease that has slightly progressed compared to last CT of 05/07/2016.) Disposition Clinical Impression: Brain lesion, Weakness Disposition: OTHER INSTITUTION NOT DEFINED - Out of Hospital Transfer - Req. Specs Out of Hospital Transfer - Requested Specifics: Medical ICU (Medical floor with neurology and neurosurgery consult)
[2016-05-19 04:58] VITALS: TEMP 99
[2016-05-19 05:10] LABS: Anisocytosis Slight; CH 33.6; CHCM 34.7; HDW 3.41; HGB 8.2 gm/dL (13.0-17.5); MCH 33.7 pg (25.0-35.0); MCHC 34.4 g/dL (31.0-37.0); Macrocytosis Slight; Mean Platelet Volume 7.4; Poikilocytosis Slight; RBC 2.45 m/uL (4.30-5.90); RDW 19.8 % (11.5-15.5); WBC (Perox) 4.95
[2016-05-19 05:19] LABS: ALT 37 U/L (21-72); AST 45 U/L (17-59); Alkaline Phosphatase 151 U/L (38-126); Anion Gap 10 mmol/L; Blood Urea Nitrogen 41 mg/dL (9-20); Carbon Dioxide 19 mmol/L (22-30); Chloride 107 mmol/L (98-107); Glucose 102 mg/dL (74-99); INR 1.3 (<1.1); Magnesium 1.9 mg/dL (1.6-2.3); Non-African American GFR(MDRD) >60 (>60 ml/min/1.73 sqM); Partial Thromboplastin Time 35.7 sec (22.0-30.0); Potassium 4.1 mmol/L (3.5-5.1); Sodium 136 mmol/L (137-145); Total Bilirubin 12.6 mg/dL (0.2-1.3); Total Protein 4.4 g/dL (6.3-8.2)
[2016-05-19 05:44] LABS: Creatine Kinase <20 U/L (55-170)
[2016-05-19 05:53] LABS: Add Differential Manual Differential
[2016-05-19 05:57] LABS: Creatine Kinase MB <0.2 ng/mL (0.0-2.4); Troponin I <0.012 ng/mL (0.000-0.034)
--- NOTE | 2016-05-19 06:00 | CT ---
EXAMINATION TYPE: CT brain wo con DATE OF EXAM: 05/19/2016 5:51 AM COMPARISON: 05/07/2016 HISTORY: AMS, poor historian CT DLP: 1233.00 mGycm Automated exposure control for dose reduction was used. FINDINGS: There is a 1.5 cm low-density lesion in the left parietal lobe convexity with surrounding edema. Ther e is a 1 cm area of focal edema in the right parietal lobe near the cerebral falx. There is a 2 cm hy podense area with central small nodule in the right frontal lobe. There is a poorly marginated 3 cm a sean of hypodensity in the right cerebellar hemisphere. There is no midline shift. There is no sign of intracranial hemorrhage. IMPRESSION: Multiple areas of cerebral edema consistent with metastatic disease that has progressed slightly comp ared to the last CT scan of 05/07/2016.
[2016-05-19 06:02] LABS: Metamyelocytes % 0.5 %; Nucleated Red Blood Cells 0 /100 WBC (0-0); Total Cells Counted 200
--- NOTE | 2016-05-19 06:02 | XR ---
EXAMINATION TYPE: XR chest 2V DATE OF EXAM: 05/19/2016 5:53 AM COMPARISON: 05/07/2016 HISTORY: Altered mental status TECHNIQUE: Frontal and lateral views of the chest are obtained. FINDINGS: There is mild pulmonary congestion. There is a poor inspiration. Heart appears enlarged. T here are chest leads. IMPRESSION: There is evidence for new mild heart failure compared to last exam. Cardiomegaly.
[2016-05-19 06:06] LABS: Target Cells Present
[2016-05-19 06:09] LABS: Polychromasia Present; Toxic Granulation Present
[2016-05-19 07:09] VITALS: RESP 14
[2016-05-19 07:28] VITALS: BP 103/53; PULSE 78
== END 2016-05-19 07:30 | disposition other institution (70) ==
LOC: EC 04:32
DX: G93.9 Disorder of brain, unspecified (principal); R53.1 Weakness; R06.00 Dyspnea, unspecified; R25.1 Tremor, unspecified; K74.60 Unspecified cirrhosis of liver; D50.9 Iron deficiency anemia, unspecified; Z76.82 Awaiting organ transplant status; N49.2 Inflammatory disorders of scrotum; K50.90 Crohn's disease, unspecified, without complications; N18.9 Chronic kidney disease, unspecified; Z93.3 Colostomy status; Z79.899 Other long term (current) drug therapy
CPT/HCPCS: 36415; 70450; 71020; 80053; 82140; 82550; 82553; 83605; 83735; 83880; 84484; 85025; 85610; 85730; 87040; 93005; 94640; 99285